=== PATIENT | female | born 1955 | race Hispanic/Latino ===

== ENCOUNTER 2017-12-28 21:04 | Inpatient (IN) | payer BC ==
[~2017-12-28] VITALS: Ht 152.4 cm; Wt 74.8 kg
[~2017-12-28 21:04] MED LIST: DOXY100C2 PO; LEVO75TA4 PO; LOSA25TA21 PO; PRAV20TA4 PO; WARF3TAB59 PO
[2017-12-28] MEDS ORDERED: ACETAMINOPHEN EXTRA STRENGTH 500 MG TABLET ONE (21:31)
[2017-12-28] MEDS ORDERED: ONDANSETRON ODT 4 MG TAB ONE (21:31)
[2017-12-28 22:05] LABS: APPEARANCE,URINE Cloudy (CLEAR); BILIRUBIN,URINE Negative (NEGATIVE); COLOR,URINE Dark Yellow (YELLOW); GLUCOSE, URINE (UA) Negative (NEGATIVE); KETONES,URINE Negative (NEGATIVE); LEUKOCYTE ESTERASE ,URINE Moderate (NEGATIVE); NITRATE,URINE Negative (NEGATIVE); OCCULT BLOOD,URINE Large (NEGATIVE); PH,URINE 5.5 (5.0-8.0); PROTEIN,URINE 300 (NEGATIVE)
[2017-12-28 22:12] LABS: COARSE GRANULAR CASTS,URINE 0-2 /LPF (None Seen)
[2017-12-28 22:13] LABS: BACTERIA,URINE Few /HPF (None Seen); RBC,URINE None Seen /HPF (0-1)
[2017-12-28 22:15] LABS: BASOPHILS % (AUTO) 0.3 % (0.0-5.0); HEMATOCRIT 37.1 % (36-48); LYMPHOCYTES % (AUTO) 6.7 % (21.0-51.0); MEAN CORPUSCULAR HEMOGLOBIN 29.5 pg (27.0-33.0); MEAN CORPUSCULAR HGB CONC 34.5 g/dL (32.0-36.0); MEAN CORPUSCULAR VOLUME 85.6 fL (79-99); MONOCYTES % (AUTO) 4.4 % (3.0-13.0); NEUTROPHILS % (AUTO) 88.6 % (40.0-77.0); PLATELET COUNT (AUTO) 57 K/uL (130-400); RED BLOOD CELL COUNT(AUTO) 4.34 MIL/uL (4.00-5.50); RED CELL DISTRIBUTION WIDTH 13.5 % (11.0-15.5); WHITE BLOOD COUNT (AUTO) 9.6 K/uL (4.8-10.8)
[2017-12-28 22:24] LABS: CREATININE 1.9 mg/dL (0.5-1.5); POTASSIUM 3.7 mmol/L (3.5-5.1)
[2017-12-28 22:28] LABS: ALBUMIN 3.4 g/dL (3.5-5.0); BILIRUBIN,TOTAL 1.5 mg/dL (0.2-1.0); TOTAL PROTEIN, SERUM 7.1 g/dL (6.0-8.3)
[2017-12-28 22:35] LABS: PLATELET MORPHOLOGY COMMENT LARGE PLTS PRESENT
[2017-12-28] MEDS ORDERED: LEVOFLOXACIN 500 MG TABLET ONE (22:49)
[2017-12-28] MEDS ORDERED: SODIUM CHLORIDE 0.9% 500ML 500 ML IV ONE (23:03)
[2017-12-28] MEDS: SODIUM CHLORIDE 0.9% 1000ML 1,000 ML IV SCH (23:51)
[2017-12-29] MEDS ORDERED: ACETAMINOPHEN 325 MG TAB PO PRN ×2
[2017-12-29] MEDS ORDERED: ONDANSETRON HCL MDV 20ML 2 MG/ML VIAL IV PRN
[2017-12-29] MEDS ORDERED: GLUCAGON 1MG KIT 1 MG ML IM PRN
[2017-12-29] MEDS: CEFTRIAXONE SODIUM 1 GM IVP SCH
[2017-12-29] MEDS ORDERED: CEFTRIAXONE 1GM/D5W 50ML 50 ML IV SCH
[2017-12-29] MEDS ORDERED: DEXTROSE 50%-WATER 50 ML DISP.SYRIN IV PRN
[2017-12-29] MEDS ORDERED: SODIUM CHLORIDE 0.9% 1000ML 1,000 ML IV ONE (00:01)
[2017-12-29] MEDS ORDERED: CEFTRIAXONE SODIUM 1 GM ONE ×2 (00:03→11:36)
[2017-12-29 00:09] LABS: INR 1.41 (0.85-1.15); PARTIAL THROMBOPLASTIN TIME 37.3 SEC (26.3-35.5); PROTHROMBIN TIME 14.7 SEC (9.6-11.6)
[2017-12-29 06:14] LABS: CREATININE 1.9 mg/dL (0.5-1.5); MEAN CORPUSCULAR HEMOGLOBIN 30.1 pg (27.0-33.0); MEAN CORPUSCULAR HGB CONC 35.2 g/dL (32.0-36.0); MEAN CORPUSCULAR VOLUME 85.5 fL (79-99); PLATELET COUNT (AUTO) 58 K/uL (130-400); POTASSIUM 3.9 mmol/L (3.5-5.1); RED BLOOD CELL COUNT(AUTO) 4.21 MIL/uL (4.00-5.50); RED CELL DISTRIBUTION WIDTH 13.5 % (11.0-15.5); WHITE BLOOD COUNT (AUTO) 8.1 K/uL (4.8-10.8)
[2017-12-29] MEDS: INSULIN HUMULIN R 100 UNIT/ML 3ML SQ SCH ×4 (07:30→21:00)
[2017-12-29] MEDS ORDERED: FAMOTIDINE 20MG TAB 20 MG TAB ONE (08:12)
[2017-12-29] MEDS ORDERED: NEOMY SULF/BACITRA/POLYMYXIN B 1 EACH PACKET TP ONE (08:12)
[2017-12-29] MEDS: NEOMY SULF/BACITRA/POLYMYXIN B 1 EACH PACKET TP SCH ×3 (09:00→22:37)
[2017-12-29] MEDS: FAMOTIDINE 20MG TAB 20 MG TAB PO SCH ×2 (09:00→19:36)
[2017-12-29] MEDS: SODIUM CHLORIDE 0.9% 1000ML 1,000 ML IV SCH ×2 (09:51→19:51)
[2017-12-29] MEDS ORDERED: POTASSIUM CHLORIDE 10% ELIXIR 20 MEQ/15 ML UDCUP PO PRN ×2 (10:30)
[2017-12-29] MEDS ORDERED: LIDOCAINE HCL-MPF 1% 2ML VIAL IVP PRN ×2 (10:30)
[2017-12-29] MEDS ORDERED: POTASSIUM CHLORIDE 20MEQ/100ML 100 ML IV PRN ×2 (10:30)
[2017-12-29] MEDS ORDERED: POTASSIUM CHLORIDE 20 MEQ ERTAB PO PRN ×2 (10:30)
[2017-12-29 15:44] VITALS: BP 121/58
[2017-12-29] MEDS ORDERED: WARFARIN SODIUM 2 MG TAB PO SCH (16:00)
[2017-12-29 20:08] VITALS: BP 137/78
[2017-12-29 23:23] VITALS: BP 116/60
[2017-12-30] MEDS: CEFTRIAXONE SODIUM 1 GM IVP SCH (01:06)
[2017-12-30 04:01] VITALS: BP 121/59
[2017-12-30 04:50] LABS: HEMATOCRIT 33.4 % (36-48); MEAN CORPUSCULAR HEMOGLOBIN 29.5 pg (27.0-33.0); MEAN CORPUSCULAR HGB CONC 34.5 g/dL (32.0-36.0); MEAN CORPUSCULAR VOLUME 85.7 fL (79-99); PLATELET COUNT (AUTO) 47 K/uL (130-400); RED CELL DISTRIBUTION WIDTH 13.5 % (11.0-15.5); WHITE BLOOD COUNT (AUTO) 6.7 K/uL (4.8-10.8)
[2017-12-30 04:55] LABS: CREATININE 1.8 mg/dL (0.5-1.5); POTASSIUM 3.9 mmol/L (3.5-5.1)
[2017-12-30 04:56] LABS: INR 1.45 (0.85-1.15); PARTIAL THROMBOPLASTIN TIME 34.6 SEC (26.3-35.5); PROTHROMBIN TIME 15.1 SEC (9.6-11.6)
[2017-12-30] MEDS: SODIUM CHLORIDE 0.9% 1000ML 1,000 ML IV SCH (05:47)
[2017-12-30] MEDS: INSULIN HUMULIN R 100 UNIT/ML 3ML SQ SCH ×4 (05:47→21:00)
[2017-12-30] MEDS: LEVOTHYROXINE 75 MCG TABLET PO SCH (06:47)
[2017-12-30 07:00] VITALS: BP 129/57
[2017-12-30] MEDS ORDERED: VANCOMYCIN PROTOCOL PER PHARMACY IV PRN (07:15)
[2017-12-30] MEDS ORDERED: VANCOMYCIN 1GM+NS 250ML 250 ML IV SCH (07:15)
[2017-12-30] MEDS ORDERED: SODIUM CHLORIDE 0.9% 1000ML 1,000 ML IV SCH (07:23)
[2017-12-30] MEDS ORDERED: COMPOUND IV REFRIGERATED 1 EACH IVSOLN MISC PRN (07:30)
[2017-12-30] MEDS ORDERED: VANCOMYCIN PROTOCOL PER PHARMACY IV SCH (07:30)
[2017-12-30] MEDS ORDERED: DOXYCYCLINE 100MG+NS 250ML 250 ML IV SCH (07:30)
[2017-12-30] MEDS ORDERED: ACETAMINOPHEN-CODEINE 300/30MG TAB PO PRN ×2 (07:45)
[2017-12-30] MEDS ORDERED: VANCOMYCIN 1.25 GM in SODIUM CHLORIDE 0.9% 250 ML IV SCH ×2 (08:00→18:00)
[2017-12-30] MEDS: FAMOTIDINE 20MG TAB 20 MG TAB PO SCH ×2 (09:23→21:33)
[2017-12-30 11:00] VITALS: BP 102/76
[2017-12-30] MEDS: NEOMY SULF/BACITRAC ZN/POLY OINT 30GM TUBE TP SCH ×3 (11:13→21:34)
[2017-12-30] MEDS: WARFARIN SODIUM 2 MG TAB PO SCH (13:32)
[2017-12-30 16:00] VITALS: BP 116/60
[2017-12-30 20:05] VITALS: BP 121/47
[2017-12-30] MEDS: ATORVASTATIN CALCIUM 10 MG TABLET PO SCH (21:33)
[2017-12-30] MEDS: DOXYCYCLINE 100MG+NS 250ML 250 ML IV SCH (23:17)
[2017-12-30 23:56] VITALS: BP 119/59
[2017-12-31] MEDS: CEFTRIAXONE SODIUM 1 GM IVP SCH (00:36)
[2017-12-31 05:32] VITALS: BP 109/49
[2017-12-31 05:33] LABS: HEMATOCRIT 30.3 % (36-48); MEAN CORPUSCULAR HEMOGLOBIN 30.4 pg (27.0-33.0); MEAN CORPUSCULAR HGB CONC 35.3 g/dL (32.0-36.0); NUCLEATED RED BLOOD CELLS 0.1 % (0.0-0.19); PLATELET COUNT (AUTO) 46 K/uL (130-400); RED BLOOD CELL COUNT(AUTO) 3.52 MIL/uL (4.00-5.50); RED CELL DISTRIBUTION WIDTH 13.7 % (11.0-15.5); WHITE BLOOD COUNT (AUTO) 6.1 K/uL (4.8-10.8)
[2017-12-31 05:43] LABS: INR 1.37 (0.85-1.15); PARTIAL THROMBOPLASTIN TIME 36.4 SEC (26.3-35.5); PROTHROMBIN TIME 14.3 SEC (9.6-11.6)
[2017-12-31 05:45] LABS: CREATININE 1.4 mg/dL (0.5-1.5); POTASSIUM 3.8 mmol/L (3.5-5.1)
[2017-12-31] MEDS: INSULIN HUMULIN R 100 UNIT/ML 3ML SQ SCH ×4 (06:04→21:34)
[2017-12-31] MEDS: LEVOTHYROXINE 75 MCG TABLET PO SCH (06:07)
[2017-12-31 08:00] VITALS: BP 118/66
[2017-12-31] MEDS: DOXYCYCLINE 100MG+NS 250ML 250 ML IV SCH (09:51)
[2017-12-31] MEDS: FAMOTIDINE 20MG TAB 20 MG TAB PO SCH ×2 (09:51→21:38)
[2017-12-31] MEDS: NEOMY SULF/BACITRAC ZN/POLY OINT 30GM TUBE TP SCH ×3 (09:52→21:00)
[2017-12-31 11:44] VITALS: BP 104/56
[2017-12-31 12:23] LABS: BILIRUBIN,DIRECT 0.7 mg/dL (0.0-0.3); BILIRUBIN,TOTAL 1.1 mg/dL (0.2-1.0)
[2017-12-31 12:24] LABS: RETICULOCYTE % (AUTO) 1.46 % (0.42-2.23)
[2017-12-31] MEDS: DEXAMETHASONE 4 MG TAB PO SCH (12:55)
[2017-12-31 16:01] VITALS: BP 117/71
[2017-12-31] MEDS ORDERED: CEFAZOLIN 2GM / 50 ML 50 ML IV SCH (16:15)
[2017-12-31 20:00] VITALS: BP 109/44
[2017-12-31] MEDS: CEFAZOLIN SODIUM 1 GM VIAL IVP SCH (21:36)
[2017-12-31] MEDS: ATORVASTATIN CALCIUM 10 MG TABLET PO SCH (21:38)
[2017-12-31] MEDS: DOXYCYCLINE HYCLATE 100 MG TABLET PO SCH (21:38)
[2017-12-31 23:43] VITALS: BP 138/65
[2018-01-01 04:00] VITALS: BP 127/73
[2018-01-01 04:43] LABS: HEMATOCRIT 33.1 % (36-48); MEAN CORPUSCULAR HEMOGLOBIN 29.4 pg (27.0-33.0); MEAN CORPUSCULAR HGB CONC 34.3 g/dL (32.0-36.0); MEAN CORPUSCULAR VOLUME 85.7 fL (79-99); PLATELET COUNT (AUTO) 52 K/uL (130-400); RED BLOOD CELL COUNT(AUTO) 3.86 MIL/uL (4.00-5.50); RED CELL DISTRIBUTION WIDTH 13.5 % (11.0-15.5); WHITE BLOOD COUNT (AUTO) 4.5 K/uL (4.8-10.8)
[2018-01-01 04:58] LABS: BAND NEUTROPHILS % (MANUAL) 2 % (0-2); LYMPHOCYTES % (MANUAL) 11 % (22-44); MAN.DIFF COMMENT-IMPRESSION MANUAL DIFFERENTIAL; MONOCYTES % (MANUAL) 1 % (2-9); SEGMENTED NEUTROPHILS % 86 % (40-70)
[2018-01-01 04:59] LABS: PLATELET MORPHOLOGY COMMENT DECREASED
[2018-01-01 05:11] LABS: ALBUMIN 2.6 g/dL (3.5-5.0); BILIRUBIN,TOTAL 0.7 mg/dL (0.2-1.0); CREATININE 1.3 mg/dL (0.5-1.5); POTASSIUM 4.6 mmol/L (3.5-5.1); TOTAL PROTEIN, SERUM 6.6 g/dL (6.0-8.3)
[2018-01-01] MEDS: CEFAZOLIN SODIUM 1 GM VIAL IVP SCH ×3 (05:29→21:01)
[2018-01-01] MEDS: LEVOTHYROXINE 75 MCG TABLET PO SCH (06:05)
[2018-01-01] MEDS: INSULIN HUMULIN R 100 UNIT/ML 3ML SQ SCH ×4 (07:02→21:29)
[2018-01-01 08:19] VITALS: BP 150/78
[2018-01-01] MEDS: NEOMY SULF/BACITRAC ZN/POLY OINT 30GM TUBE TP SCH ×3 (08:36→21:12)
[2018-01-01] MEDS: DOXYCYCLINE HYCLATE 100 MG TABLET PO SCH ×2 (08:36→21:02)
[2018-01-01] MEDS: FAMOTIDINE 20MG TAB 20 MG TAB PO SCH ×2 (08:36→21:02)
[2018-01-01] MEDS: DEXAMETHASONE 4 MG TAB PO SCH (12:16)
[2018-01-01 12:21] VITALS: BP 139/61
[2018-01-01 16:45] VITALS: BP 138/76
[2018-01-01 19:18] VITALS: BP 125/69
[2018-01-01] MEDS: ATORVASTATIN CALCIUM 10 MG TABLET PO SCH (21:02)
[2018-01-01 23:15] VITALS: BP 142/61
[2018-01-02 03:15] VITALS: BP 147/74
[2018-01-02] MEDS: CEFAZOLIN SODIUM 1 GM VIAL IVP SCH ×3 (03:51→21:17)
[2018-01-02 05:34] LABS: HEMATOCRIT 33.3 % (36-48); MEAN CORPUSCULAR HEMOGLOBIN 29.3 pg (27.0-33.0); MEAN CORPUSCULAR HGB CONC 34.3 g/dL (32.0-36.0); MEAN CORPUSCULAR VOLUME 85.5 fL (79-99); PLATELET COUNT (AUTO) 78 K/uL (130-400); RED CELL DISTRIBUTION WIDTH 13.8 % (11.0-15.5); WHITE BLOOD COUNT (AUTO) 7.7 K/uL (4.8-10.8)
[2018-01-02 05:45] LABS: CREATININE 1.6 mg/dL (0.5-1.5); INR 1.51 (0.85-1.15); PARTIAL THROMBOPLASTIN TIME 31.1 SEC (26.3-35.5); POTASSIUM 4.3 mmol/L (3.5-5.1); PROTHROMBIN TIME 15.7 SEC (9.6-11.6)
[2018-01-02] MEDS: INSULIN HUMULIN R 100 UNIT/ML 3ML SQ SCH ×4 (06:44→21:24)
[2018-01-02] MEDS: LEVOTHYROXINE 75 MCG TABLET PO SCH (06:46)
[2018-01-02 08:00] VITALS: BP 144/75
[2018-01-02] MEDS: DOXYCYCLINE HYCLATE 100 MG TABLET PO SCH ×2 (08:25→21:17)
[2018-01-02] MEDS: FAMOTIDINE 20MG TAB 20 MG TAB PO SCH ×2 (08:25→21:17)
[2018-01-02] MEDS: NEOMY SULF/BACITRAC ZN/POLY OINT 30GM TUBE TP SCH ×3 (08:26→21:23)
[2018-01-02] MEDS: DEXAMETHASONE 4 MG TAB PO SCH (11:45)
[2018-01-02 12:00] VITALS: BP 131/66
[2018-01-02 16:00] VITALS: BP 143/73
[2018-01-02] MEDS: WARFARIN SODIUM 2 MG TAB PO SCH (16:50)
[2018-01-02 20:35] VITALS: BP 147/73
[2018-01-02] MEDS: ATORVASTATIN CALCIUM 10 MG TABLET PO SCH (21:17)
[2018-01-02 23:37] VITALS: BP 139/68
[2018-01-03] MEDS: CEFAZOLIN SODIUM 1 GM VIAL IVP SCH ×3 (04:08→19:46)
[2018-01-03 04:15] VITALS: BP 145/65
[2018-01-03] MEDS: LEVOTHYROXINE 75 MCG TABLET PO SCH (05:26)
[2018-01-03] MEDS: INSULIN HUMULIN R 100 UNIT/ML 3ML SQ SCH ×4 (05:27→21:14)
[2018-01-03 06:18] LABS: HEMATOCRIT 33.9 % (36-48); MEAN CORPUSCULAR HEMOGLOBIN 29.2 pg (27.0-33.0); MEAN CORPUSCULAR HGB CONC 33.9 g/dL (32.0-36.0); MEAN CORPUSCULAR VOLUME 86.1 fL (79-99); PLATELET COUNT (AUTO) 121 K/uL (130-400); RED BLOOD CELL COUNT(AUTO) 3.94 MIL/uL (4.00-5.50); RED CELL DISTRIBUTION WIDTH 13.4 % (11.0-15.5); WHITE BLOOD COUNT (AUTO) 7.7 K/uL (4.8-10.8)
[2018-01-03 06:39] LABS: CREATININE 1.6 mg/dL (0.5-1.5); POTASSIUM 4.6 mmol/L (3.5-5.1)
[2018-01-03 08:00] VITALS: BP 145/68
[2018-01-03] MEDS: NEOMY SULF/BACITRAC ZN/POLY OINT 30GM TUBE TP SCH ×3 (09:23→19:52)
[2018-01-03] MEDS: DOXYCYCLINE HYCLATE 100 MG TABLET PO SCH ×2 (09:24→19:47)
[2018-01-03] MEDS: FAMOTIDINE 20MG TAB 20 MG TAB PO SCH ×2 (09:24→19:47)
[2018-01-03 11:00] VITALS: BP 123/73
[2018-01-03] MEDS: DEXAMETHASONE 4 MG TAB PO SCH (11:50)
[2018-01-03 15:45] VITALS: BP 144/79
[2018-01-03] MEDS: WARFARIN SODIUM 2 MG TAB PO SCH (16:00)
[2018-01-03] MEDS: ATORVASTATIN CALCIUM 10 MG TABLET PO SCH (19:47)
[2018-01-03 20:26] VITALS: BP 154/83
[2018-01-04 00:28] VITALS: BP 152/63
[2018-01-04 03:52] VITALS: BP 143/72
[2018-01-04] MEDS: CEFAZOLIN SODIUM 1 GM VIAL IVP SCH ×3 (04:08→19:51)
[2018-01-04] MEDS: LEVOTHYROXINE 75 MCG TABLET PO SCH (05:39)
[2018-01-04] MEDS: INSULIN HUMULIN R 100 UNIT/ML 3ML SQ SCH ×4 (06:06→21:07)
[2018-01-04 06:49] LABS: HEMATOCRIT 34.9 % (36-48); MEAN CORPUSCULAR VOLUME 85.4 fL (79-99); PLATELET COUNT (AUTO) 131 K/uL (130-400); RED BLOOD CELL COUNT(AUTO) 4.09 MIL/uL (4.00-5.50); RED CELL DISTRIBUTION WIDTH 13.6 % (11.0-15.5); WHITE BLOOD COUNT (AUTO) 7.5 K/uL (4.8-10.8)
[2018-01-04 07:00] VITALS: BP 149/93
[2018-01-04 07:00] LABS: CREATININE 1.6 mg/dL (0.5-1.5); POTASSIUM 4.6 mmol/L (3.5-5.1)
[2018-01-04 07:09] LABS: INR 1.55 (0.85-1.15); PROTHROMBIN TIME 16.1 SEC (9.6-11.6)
[2018-01-04] MEDS: WARFARIN SODIUM 2 MG TAB PO SCH (08:13)
[2018-01-04] MEDS: NEOMY SULF/BACITRAC ZN/POLY OINT 30GM TUBE TP SCH ×3 (08:53→19:57)
[2018-01-04] MEDS: DOXYCYCLINE HYCLATE 100 MG TABLET PO SCH ×2 (09:00→19:52)
[2018-01-04] MEDS: FAMOTIDINE 20MG TAB 20 MG TAB PO SCH ×2 (09:00→19:52)
[2018-01-04 11:11] VITALS: BP 155/76
[2018-01-04 15:36] VITALS: BP 131/63
[2018-01-04 19:48] VITALS: BP 120/68
[2018-01-04] MEDS: ATORVASTATIN CALCIUM 10 MG TABLET PO SCH (19:52)
[2018-01-05] VITALS (7 sets, daily range): BP systolic 124–141; BP diastolic 52–74
[2018-01-05] MEDS: CEFAZOLIN SODIUM 1 GM VIAL IVP SCH ×3 (04:18→20:21)
[2018-01-05] MEDS: LEVOTHYROXINE 75 MCG TABLET PO SCH (04:21)
[2018-01-05 05:07] LABS: HEMATOCRIT 33.6 % (36-48); MEAN CORPUSCULAR HEMOGLOBIN 29.2 pg (27.0-33.0); MEAN CORPUSCULAR HGB CONC 34.2 g/dL (32.0-36.0); MEAN CORPUSCULAR VOLUME 85.4 fL (79-99); NUCLEATED RED BLOOD CELLS 0.1 % (0.0-0.19); PLATELET COUNT (AUTO) 126 K/uL (130-400); RED BLOOD CELL COUNT(AUTO) 3.93 MIL/uL (4.00-5.50); RED CELL DISTRIBUTION WIDTH 13.4 % (11.0-15.5); WHITE BLOOD COUNT (AUTO) 7.4 K/uL (4.8-10.8)
[2018-01-05] MEDS: INSULIN HUMULIN R 100 UNIT/ML 3ML SQ SCH ×4 (06:19→21:14)
[2018-01-05] MEDS: NEOMY SULF/BACITRAC ZN/POLY OINT 30GM TUBE TP SCH ×3 (09:00→21:14)
[2018-01-05] MEDS ORDERED: LIDOCAINE HCL-MPF 2% 10ML AMP IJ SCH (09:45)
[2018-01-05] MEDS ORDERED: MIDAZOLAM HCL 1 MG/ML 5ML VIAL IVP SCH (09:45)
[2018-01-05] MEDS: FENTANYL CITRATE PF 50 MCG/1 ML 2ML VIAL IVP SCH ×2 (09:45→11:10)
[2018-01-05] MEDS ORDERED: LIDOCAINE HCL-MPF 2% 5ML VIAL IV SCH (10:30)
[2018-01-05] MEDS ORDERED: LIDOCAINE HCL 2% VISCOUS 15 ML UDCUP PO SCH (10:45)
[2018-01-05] MEDS: MIDAZOLAM HCL 1 MG/ML 2ML VIAL IVP SCH ×2 (10:45→11:12)
[2018-01-05] MEDS: DOXYCYCLINE HYCLATE 100 MG TABLET PO SCH ×2 (12:47→20:21)
[2018-01-05] MEDS: FAMOTIDINE 20MG TAB 20 MG TAB PO SCH ×2 (12:47→20:21)
[2018-01-05] MEDS: WARFARIN SODIUM 2 MG TAB PO SCH (15:04)
[2018-01-05] MEDS: ATORVASTATIN CALCIUM 10 MG TABLET PO SCH (20:21)
[2018-01-06 01:59] LABS: CREATINE KINASE MB 0.9 ng/mL (0.5-3.6); CREATINE KINASE, TOTAL 12 U/L (21-232); MYOGLOBIN 39 ng/mL (10-92); TROPONIN I < 0.04 ng/mL (0.00-0.06)
[2018-01-06 03:43] VITALS: BP 144/67
[2018-01-06] MEDS: CEFAZOLIN SODIUM 1 GM VIAL IVP SCH ×2 (03:56→15:02)
[2018-01-06 05:16] LABS: HEMATOCRIT 35.1 % (36-48); MEAN CORPUSCULAR HEMOGLOBIN 29.6 pg (27.0-33.0); MEAN CORPUSCULAR HGB CONC 34.5 g/dL (32.0-36.0); MEAN CORPUSCULAR VOLUME 85.9 fL (79-99); NUCLEATED RED BLOOD CELLS 0.1 % (0.0-0.19); PLATELET COUNT (AUTO) 135 K/uL (130-400); RED BLOOD CELL COUNT(AUTO) 4.09 MIL/uL (4.00-5.50); RED CELL DISTRIBUTION WIDTH 13.9 % (11.0-15.5); WHITE BLOOD COUNT (AUTO) 9.3 K/uL (4.8-10.8)
[2018-01-06 05:23] LABS: INR 1.34 (0.85-1.15)
[2018-01-06] MEDS: INSULIN HUMULIN R 100 UNIT/ML 3ML SQ SCH ×3 (05:38→16:30)
[2018-01-06] MEDS: LEVOTHYROXINE 75 MCG TABLET PO SCH (06:12)
[2018-01-06 07:00] VITALS: BP 142/69
[2018-01-06] MEDS: FAMOTIDINE 20MG TAB 20 MG TAB PO SCH (08:50)
[2018-01-06] MEDS: DOXYCYCLINE HYCLATE 100 MG TABLET PO SCH (08:50)
[2018-01-06] MEDS: NEOMY SULF/BACITRAC ZN/POLY OINT 30GM TUBE TP SCH ×2 (08:50→15:11)
== END 2018-01-06 19:42 | disposition home or self-care (01) | DRG 871 ==
LOC: EDH 21:04 → OBSVTOIN 23:05 → EDHIP 23:05 → 3AH 12-29 14:22
PROVIDERS: ADMIT Internal Medicine; ATTEND Internal Medicine
PROC: B24BZZZ Ultrasonography of Heart with Aorta (ICD-10-PCS; principal; 2017-12-28)
PROC: 02HV33Z Insertion of Infusion Device into Superior Vena Cava, Percutaneous Approach (ICD-10-PCS; 2018-01-06)
DX: A41.01 Sepsis due to Methicillin susceptible Staphylococcus aureus (principal); I33.0 Acute and subacute infective endocarditis; E44.1 Mild protein-calorie malnutrition; N39.0 Urinary tract infection, site not specified; N17.9 Acute kidney failure, unspecified; E87.1 Hypo-osmolality and hyponatremia; D69.3 Immune thrombocytopenic purpura; D68.69 Other thrombophilia; E11.9 Type 2 diabetes mellitus without complications; I10 Essential (primary) hypertension; Z95.3 Presence of xenogenic heart valve; E78.5 Hyperlipidemia, unspecified; Z79.01 Long term (current) use of anticoagulants; Z68.32 Body mass index [BMI] 32.0-32.9, adult; E03.9 Hypothyroidism, unspecified; E86.0 Dehydration; R53.81 Other malaise; I08.0 Rheumatic disorders of both mitral and aortic valves; I48.2 Chronic atrial fibrillation; Z95.0 Presence of cardiac pacemaker; Z83.3 Family history of diabetes mellitus; D64.9 Anemia, unspecified
CPT/HCPCS: 36415; 71045; 74176; 80048; 80053; 81001; 82247; 82248; 82550; 82553; 82607; 82746; 82948; 83010; 83690; 83874; 84484; 85025; 85027; 85045; 85060; 85610; 85730; 86757; 86880; 87040; 87088; 87186; 87520; 93005; 93306; 93312; A4218; J0690; J0696; J1815; J2250; J3010; J3370; J3490; J7030; J7040; J8540

== ENCOUNTER → 2018-05-26 | Outpatient (CLI) | payer BC ==
[~2018-05-26] MED LIST changes: +LOSA25TA16 PO; -LOSA25TA21 PO
== END | disposition home or self-care (01) ==
LOC: SHCH 10:05
PROVIDERS: ATTEND Internal Medicine Cardiovascular Disease
DX: I07.1 Rheumatic tricuspid insufficiency (principal); I38 Endocarditis, valve unspecified; Z95.0 Presence of cardiac pacemaker; Z95.2 Presence of prosthetic heart valve
CPT/HCPCS: 93306

== ENCOUNTER 2018-12-15 06:53 | Inpatient (IN) | payer BC ==
[~2018-12-15] VITALS: Ht 149.9 cm; Wt 72.6 kg
[~2018-12-15 06:53] MED LIST changes: -LOSA25TA16 PO; +LOSA25TA41 PO
[2018-12-15] MEDS ORDERED: IPRATROPIUM/ALBUTEROL SULFATE 3 ML SOLUTION IH ONE ×3 (07:19→12:07)
[2018-12-15 07:32] LABS: BASOPHILS % (AUTO) 0.8 % (0.0-5.0); EOSINOPHILS % (AUTO) 0.2 % (0.0-8.0); HEMATOCRIT 35.3 % (36-48); LYMPHOCYTES % (AUTO) 9.4 % (21.0-51.0); MEAN CORPUSCULAR HEMOGLOBIN 28.6 pg (27.0-33.0); MEAN CORPUSCULAR HGB CONC 32.7 g/dL (32.0-36.0); MEAN CORPUSCULAR VOLUME 87.5 fL (79-99); MONOCYTES % (AUTO) 5.8 % (3.0-13.0); NEUTROPHILS % (AUTO) 83.8 % (40.0-77.0); PLATELET COUNT (AUTO) 123 K/uL (130-400); RED BLOOD CELL COUNT(AUTO) 4.04 MIL/uL (4.00-5.50); RED CELL DISTRIBUTION WIDTH 14.5 % (11.0-15.5); WHITE BLOOD COUNT (AUTO) 11.7 K/uL (4.8-10.8)
[2018-12-15 07:41] LABS: CREATININE 1.8 mg/dL (0.5-1.5); POTASSIUM 4.1 mmol/L (3.5-5.1)
[2018-12-15 07:47] LABS: ALBUMIN 3.7 g/dL (3.5-5.0); BILIRUBIN,TOTAL 1.3 mg/dL (0.2-1.0); TOTAL PROTEIN, SERUM 7.4 g/dL (6.0-8.3)
[2018-12-15] MEDS ORDERED: METHYLPREDNISOLONE SOD SUCC 125MG/2ML VIAL ONE (07:51)
[2018-12-15 07:53] LABS: INR 1.51 (0.85-1.15); PARTIAL THROMBOPLASTIN TIME 43.3 SEC (26.3-35.5); PROTHROMBIN TIME 15.7 SEC (9.6-11.6)
[2018-12-15] MEDS ORDERED: ALBUTEROL SULFATE 0.083% 2.5 MG/3 ML INH IH ONE (09:59)
[2018-12-15 10:33] LABS: ABG BASE EXCESS -4.6 mmol/L (-2.0-3.0); ABG HCO3 17.6 mmol/L (21.0-28.0); ABG PCO2 26 mmHg (32-45)
[2018-12-15] MEDS ORDERED: ONDANSETRON HCL 4 MG/2 ML VIAL IV PRN (12:00)
[2018-12-15] MEDS ORDERED: ACETAMINOPHEN 325 MG TAB PO PRN (12:00)
[2018-12-15] MEDS: METHYLPREDNISOLONE SOD SUCC 40MG/ML 1ML IVP SCH ×2 (12:00→21:18)
[2018-12-15] MEDS ORDERED: HYDRALAZINE HCL 20 MG/ML VIAL IV PRN (12:00)
[2018-12-15] MEDS: IPRATROPIUM/ALBUTEROL SULFATE 3 ML SOLUTION IH SCH ×3 (12:28→23:11)
[2018-12-15] MEDS ORDERED: METHYLPREDNISOLONE SOD SUCC 40MG/ML 1ML ONE (16:23)
[2018-12-15] MEDS ORDERED: INSULIN HUMULIN R 100 UNIT/ML 3ML SQ SCH (16:30)
[2018-12-15 17:18] VITALS: BP 146/52
--- NOTE | 2018-12-15 17:40 | NUR ---
GALVEZ AWARE FOR PULMONARY CONSULT
[2018-12-15] MEDS ORDERED: HEPARIN SODIUM 5000UNIT/ML 1ML VIAL SQ PRN (18:15)
[2018-12-15 19:00] VITALS: BP 137/59
[2018-12-15] MEDS ORDERED: WARFARIN SODIUM 1 MG TAB PO SCH (19:30)
[2018-12-15] MEDS: FUROSEMIDE 10 MG/ML 2ML VIAL IV SCH (20:06)
--- NOTE | 2018-12-15 20:21 | NUR ---
Heparin Drip spoke to MD Calvo regarding procedure CJ and heparin drip. MD west to start drip. RENETTA Sauer.
[2018-12-15] MEDS ORDERED: FUROSEMIDE 10 MG/ML 4ML VIAL IVP SCH (21:00)
[2018-12-15] MEDS ORDERED: LOSARTAN 50 MG TABLET PO SCH (21:00)
[2018-12-15] MEDS: ATORVASTATIN CALCIUM 10 MG TABLET PO SCH (21:18)
[2018-12-15] MEDS: FAMOTIDINE/PF 20 MG/2 ML VIAL IV SCH (21:18)
[2018-12-15] MEDS: ZOSYN 3.375GM+NS 50ML 50 ML IV SCH (21:19)
[2018-12-15] MEDS: HEPARIN 25000 UNITS/250 ML D5W 250 ML IV SCH (21:44)
[2018-12-15] MEDS ORDERED: DEXTROSE 50%-WATER 50 ML DISP.SYRIN IV PRN (22:15)
[2018-12-15] MEDS ORDERED: GLUCAGON 1MG KIT 1 MG ML IM PRN (22:15)
[2018-12-15 23:00] VITALS: BP 136/64
[2018-12-16] MEDS ORDERED: INSULIN HUMULIN R 100 UNIT/ML 3ML ONE (00:30)
[2018-12-16] MEDS: INSULIN HUMULIN R 100 UNIT/ML 3ML SQ SCH ×4 (00:32→21:12)
[2018-12-16] MEDS: FUROSEMIDE 10 MG/ML 2ML VIAL IV SCH (02:39)
[2018-12-16 03:00] VITALS: BP 154/59
[2018-12-16] MEDS: METHYLPREDNISOLONE SOD SUCC 40MG/ML 1ML IVP SCH ×3 (04:09→20:22)
[2018-12-16 04:55] LABS: CREATININE 2.2 mg/dL (0.5-1.5); POTASSIUM 3.4 mmol/L (3.5-5.1)
[2018-12-16 04:57] LABS: INR 1.37 (0.85-1.15); PARTIAL THROMBOPLASTIN TIME 40.8 SEC (26.3-35.5); PROTHROMBIN TIME 14.3 SEC (9.6-11.6)
[2018-12-16] MEDS: HEPARIN 25000 UNITS/250 ML D5W 250 ML IV SCH (05:26)
[2018-12-16 05:46] LABS: BASOPHILS % (AUTO) 0.1 % (0.0-5.0); EOSINOPHILS % (AUTO) 0.1 % (0.0-8.0); HEMATOCRIT 33.4 % (36-48); LYMPHOCYTES % (AUTO) 6.8 % (21.0-51.0); MEAN CORPUSCULAR HEMOGLOBIN 29.9 pg (27.0-33.0); MEAN CORPUSCULAR HGB CONC 34.2 g/dL (32.0-36.0); MEAN CORPUSCULAR VOLUME 87.6 fL (79-99); MONOCYTES % (AUTO) 3.2 % (3.0-13.0); NEUTROPHILS % (AUTO) 89.8 % (40.0-77.0); PLATELET COUNT (AUTO) 94 K/uL (130-400); RED BLOOD CELL COUNT(AUTO) 3.82 MIL/uL (4.00-5.50); RED CELL DISTRIBUTION WIDTH 14.4 % (11.0-15.5); WHITE BLOOD COUNT (AUTO) 10.1 K/uL (4.8-10.8)
[2018-12-16] MEDS: IPRATROPIUM/ALBUTEROL SULFATE 3 ML SOLUTION IH SCH ×3 (06:45→18:48)
[2018-12-16] MEDS: LEVOTHYROXINE 75 MCG TABLET PO SCH (07:06)
[2018-12-16 07:54] VITALS: BP 114/46
[2018-12-16] MEDS ORDERED: MIDAZOLAM HCL 1 MG/ML 2ML VIAL IVP ONE (08:00)
[2018-12-16] MEDS ORDERED: FENTANYL CITRATE PF 50 MCG/1 ML 2ML VIAL IVP ONE (08:00)
[2018-12-16] MEDS ORDERED: SODIUM CHLORIDE 0.9% 1000ML 1,000 ML IV SCH (08:30)
--- NOTE | 2018-12-16 08:40 | NUR ---
DR. MALDONADO IN ROOM SPEAKING WITH PT. RE:PLAN OF CARE AND QUESTIONS ANSWERED.
[2018-12-16] MEDS ORDERED: LIDOCAINE HCL 2% VISCOUS 15 ML UDCUP PO SCH (08:45)
[2018-12-16] MEDS ORDERED: MIDAZOLAM HCL 1 MG/ML 2ML VIAL ONE (10:15)
[2018-12-16] MEDS ORDERED: FENTANYL CITRATE PF 50 MCG/1 ML 2ML VIAL ONE (10:17)
[2018-12-16] MEDS: INSULIN LISPRO 100 UNIT/ML 3ML SQ SCH ×3 (11:30→17:13)
[2018-12-16] MEDS: SODIUM CHLORIDE 3% FOR INHALATION 4 ML/AMP VIAL.NEB IH SCH ×2 (11:52→19:07)
[2018-12-16 12:05] VITALS: BP 125/55
[2018-12-16] MEDS: ZOSYN 3.375GM+NS 50ML 50 ML IV SCH ×2 (12:14→20:20)
[2018-12-16] MEDS: FAMOTIDINE/PF 20 MG/2 ML VIAL IV SCH ×2 (12:18→20:22)
--- NOTE | 2018-12-16 13:31 | NUR ---
DR. VÁSQUEZ IN ROOM ASSESSING/SPEAKING WITH PT. PT.'S SPOUSE AT BEDSIDE. QUESTIONS ANSWERED BY DR. VÁSQUEZ.
[2018-12-16] MEDS ORDERED: RIVA15TA PO (15:03)
[2018-12-16 15:46] VITALS: BP 127/56
[2018-12-16] MEDS ORDERED: WARFARIN SODIUM 5 MG TAB PO SCH (16:00)
--- NOTE | 2018-12-16 16:03 | NUR ---
DC PLAN PATIENT LIVES WITH SPOUSE. INDEPENDENT ABLE TO PERFORM ADL'S. PATIENT LIVES WITH SPOUSE. INDEPENDENT ABLE TO PERFORM ADL'S. FEELS SAFE TO RETURN HOME. Addendum: 12/16/18 at 1628 by PAULO MORGAN RN CM Amended: Links added.
[2018-12-16] MEDS ORDERED: LACTULOSE 20 GM/30 ML UDCUP PO PRN (17:15)
[2018-12-16 19:30] VITALS: BP 109/54
[2018-12-16] MEDS ORDERED: FUROSEMIDE 10 MG/ML 4ML VIAL IV SCH (20:00)
[2018-12-16] MEDS ORDERED: SODIUM CHLORIDE 0.9% 1000ML 1,000 ML IV ONE (20:15)
[2018-12-16] MEDS: SODIUM CHLORIDE 0.9% 1000ML 1,000 ML IV SCH (20:15)
[2018-12-16] MEDS: ATORVASTATIN CALCIUM 10 MG TABLET PO SCH (20:22)
[2018-12-16] MEDS: INSULIN GLARGINE 100 UNITS/ML 10 ML VIAL SQ SCH (21:11)
[2018-12-16 23:50] VITALS: BP 132/57
[2018-12-17] VITALS (18 sets, daily range): BP systolic 119–154; BP diastolic 48–79
[2018-12-17] MEDS: IPRATROPIUM/ALBUTEROL SULFATE 3 ML SOLUTION IH SCH ×5 (01:20→23:21)
[2018-12-17] MEDS: HEPARIN 25000 UNITS/250 ML D5W 250 ML IV SCH ×2 (01:26→01:29)
[2018-12-17] MEDS ORDERED: SODIUM CHLORIDE 3% FOR INHALATION 4 ML/AMP VIAL.NEB IH ONE (01:38)
--- NOTE | 2018-12-17 03:20 | NUR ---
CALLED IN BY PATIENT. NOSE BLEEDING PROFUSELY , BRIGHT RED BLOOD. ICE BUSHRA AND LIGHT PRESSURE APPLIED TO BRIDGE OF NOSE. 0324-DIE HOLDER PAGED. 0325-DIE HOLDER RETURNED CALL, APPRAISED OF NOSE BLEEDING AND LAST PTT. ORDERS RECEIVED TO STOP HEPARIN DRIP AND DRAW LABS IN AM IF NOT ALREADY ORDERED. 0340-HEMOSTASIS OBTAINED. PATIENT REMAINED ALERT AND ORIENTATED TIMES THREE. WILL CONTINUE TO MONITOR.
[2018-12-17 04:30] LABS: ABG BASE EXCESS -6.8 mmol/L (-2.0-3.0); ABG HCO3 17.3 mmol/L (21.0-28.0); ABG OXYGEN SATURATION 97.5 % (95.0-99.0); ABG PCO2 31 mmHg (32-45)
[2018-12-17] MEDS: METHYLPREDNISOLONE SOD SUCC 40MG/ML 1ML IVP SCH ×3 (04:33→21:02)
[2018-12-17] MEDS: INSULIN HUMULIN R 100 UNIT/ML 3ML SQ SCH ×5 (04:33→21:18)
[2018-12-17 04:41] LABS: MEAN CORPUSCULAR HEMOGLOBIN 28.5 pg (27.0-33.0); MEAN CORPUSCULAR HGB CONC 32.6 g/dL (32.0-36.0); MEAN CORPUSCULAR VOLUME 87.6 fL (79-99); PLATELET COUNT (AUTO) 121 K/uL (130-400); RED BLOOD CELL COUNT(AUTO) 3.77 MIL/uL (4.00-5.50); RED CELL DISTRIBUTION WIDTH 14.4 % (11.0-15.5); WHITE BLOOD COUNT (AUTO) 12.8 K/uL (4.8-10.8)
[2018-12-17 04:53] LABS: INR 1.18 (0.85-1.15); PARTIAL THROMBOPLASTIN TIME 55.5 SEC (26.3-35.5); PROTHROMBIN TIME 12.4 SEC (9.6-11.6)
[2018-12-17 05:15] LABS: ALBUMIN 3.2 g/dL (3.5-5.0); BILIRUBIN,TOTAL 0.8 mg/dL (0.2-1.0); CREATININE 2.4 mg/dL (0.5-1.5); MAGNESIUM 2.5 mg/dL (1.80-2.40); PHOSPHORUS 5.2 mg/dL (2.5-4.9); POTASSIUM 3.3 mmol/L (3.5-5.1); THYROID STIMULATING HORMONE 0.91 uIU/mL (0.36-3.74); TOTAL PROTEIN, SERUM 6.8 g/dL (6.0-8.3)
[2018-12-17] MEDS: INSULIN LISPRO 100 UNIT/ML 3ML SQ SCH ×3 (06:01→17:00)
[2018-12-17] MEDS: LEVOTHYROXINE 75 MCG TABLET PO SCH (07:35)
[2018-12-17] MEDS: ZOSYN 3.375GM+NS 50ML 50 ML IV SCH ×2 (08:27→21:02)
[2018-12-17] MEDS: FAMOTIDINE/PF 20 MG/2 ML VIAL IV SCH ×2 (08:27→21:02)
--- NOTE | 2018-12-17 09:00 | NUR ---
DR. MCKENNA IN ROOM ASSESSING/SPEAKING WITH PT. PT.'S SPOUSE AND SON AT BEDSIDE. QUESTIONS ANSWERED BY DR. MCKENNA.
--- NOTE | 2018-12-17 15:45 | NUR ---
DR. Katelin POZO IN ROOM ASSESSING/SPEAKING WITH PT., SPOUSE AT BEDSIDE. DR. POZO UPDATED ON PREVIOUS HEPARIN THERAPY AND EPISTAXIS; VERBALIZED UNDERSTANDING. DR. POZO SPEAKING WITH PT., PT.'S SPOUSE AND SON AT BEDSIDE RE:PLAN OF CARE. QUESTIONS ANSWERED BY DR. POZO.
--- NOTE | 2018-12-17 16:00 | NUR ---
DR. POZO SPEAKING WITH DR. MCKENNA VIA TELEPHONE RE:PT. STATUS AND PLAN OF CARE.
[2018-12-17] MEDS: SODIUM CHLORIDE 0.9% 1000ML 1,000 ML IV SCH (16:15)
--- NOTE | 2018-12-17 16:20 | NUR ---
TRANSFERRED TO ROOM 210 VIA W/C WITH O2 AT 2L/NC. PT. AAOX3, DENIES ANY C/O AT THIS TIME. PT.'S SPOUSE AND SON AWARE.
[2018-12-17] MEDS ORDERED: FENTANYL CITRATE PF 50 MCG/1 ML 2ML VIAL ONE (16:41)
[2018-12-17] MEDS ORDERED: MIDAZOLAM HCL 1 MG/ML 2ML VIAL ONE (16:41)
--- NOTE | 2018-12-17 17:30 | NUR ---
DR. MCKENNA AT BEDSIDE FOR SWAN CLAY PLACEMENT. CONSENT OBTAINED AND IN CHART. PT PREMEDICATED WITH 1 MG OF VERSED AND FENTANYL 50 MCGS IV ORDERED. TOLERATING WELL. 9 FR RT IJ CORDIS PLACED WITH SWAN CLAY POSITIONED AT 55 CM. HEMODYNAMICS NOTED IN EMR. LASIX 60 MG IV GIVEN ORDERED AND DOBUTAMINE DRIP STARTED AT 2.5 MCGS/KG/MIN. FAMILY AT BEDSIDE AND UPDATED. ALL QUESTIONS ANSWERED. CONTINUE TO MONITOR PT. CXR ORDERED FOR PLACEMENT.
[2018-12-17] MEDS ORDERED: FUROSEMIDE 10 MG/ML 10ML VIAL ONE (17:35)
[2018-12-17] MEDS ORDERED: DOBUTAMINE 250MG/D5 250ML 250 ML IV ONE (17:39)
[2018-12-17 17:57] LABS: ABG OXYGEN SATURATION 65.5 % (95.0-99.0); BASE EXCESS,VENOUS BLOOD GAS -4.8 (-2.0-3.0); HCO3,VENOUS BLOOD GAS 20.5 (21.0-28.0); PCO2,VENOUS BLOOD GAS 39 (32-45)
[2018-12-17] MEDS ORDERED: FUROSEMIDE 10 MG/ML 10ML VIAL IVP SCH (18:00)
--- NOTE | 2018-12-17 20:22 | NUR ---
ASSESSMENT AWAKE RESTING IN BED. DENIES PAIN. FAMILY MEMBERS AT BEDSIDE AND QUESTIONS ANSWERED. ENCOURAGED TO CALL FOR WANTS OR NEEDS. REMAINS ON DOBUTAMINE DRIP AT ORDERED RATE. ASSESSMENT COMPLETED SEE FLOW SHEET. Addendum: 12/17/18 at 2023 by JACKIE SANCHEZ RN RN Amended: Links added.
[2018-12-17] MEDS: ATORVASTATIN CALCIUM 10 MG TABLET PO SCH (21:00)
[2018-12-17] MEDS: INSULIN GLARGINE 100 UNITS/ML 10 ML VIAL SQ SCH (21:17)
[2018-12-18] VITALS (22 sets, daily range): BP systolic 111–148; BP diastolic 37–72
[2018-12-18] MEDS: METHYLPREDNISOLONE SOD SUCC 40MG/ML 1ML IVP SCH ×3 (04:40→20:45)
[2018-12-18 06:30] LABS: INR 1.31 (0.85-1.15); PROTHROMBIN TIME 13.7 SEC (9.6-11.6)
[2018-12-18] MEDS: IPRATROPIUM/ALBUTEROL SULFATE 3 ML SOLUTION IH SCH ×4 (06:42→23:16)
[2018-12-18] MEDS: LEVOTHYROXINE 75 MCG TABLET PO SCH (07:00)
[2018-12-18] MEDS: INSULIN LISPRO 100 UNIT/ML 3ML SQ SCH ×3 (07:06→16:52)
[2018-12-18] MEDS: INSULIN HUMULIN R 100 UNIT/ML 3ML SQ SCH ×4 (07:30→20:52)
[2018-12-18 07:57] LABS: HEMATOCRIT 31.2 % (36-48); MEAN CORPUSCULAR HEMOGLOBIN 29.1 pg (27.0-33.0); MEAN CORPUSCULAR HGB CONC 33.2 g/dL (32.0-36.0); MEAN CORPUSCULAR VOLUME 87.9 fL (79-99); NUCLEATED RED BLOOD CELLS 0.1 % (0.0-0.19); PLATELET COUNT (AUTO) 95 K/uL (130-400); RED BLOOD CELL COUNT(AUTO) 3.55 MIL/uL (4.00-5.50); RED CELL DISTRIBUTION WIDTH 14.5 % (11.0-15.5); WHITE BLOOD COUNT (AUTO) 8.1 K/uL (4.8-10.8)
--- NOTE | 2018-12-18 08:00 | NUR ---
DR. MCKENNA IN TO SEE PT. PLAN OF CARE DISCUSSED. NEW ORDERS RECEIVED AND NOTED.
[2018-12-18 08:12] LABS: ALBUMIN 3.2 g/dL (3.5-5.0); BILIRUBIN,TOTAL 0.8 mg/dL (0.2-1.0); POTASSIUM 3.2 mmol/L (3.5-5.1); TOTAL PROTEIN, SERUM 6.5 g/dL (6.0-8.3)
--- NOTE | 2018-12-18 09:00 | NUR ---
PT BLEEDING FROM LEFT NARE, PRESSURE APPLIED BUT PT CONTINUES TO BLEED. DR. MCKENNA NOTIFIED. RAPID RHINO APPLIED ORDERED.. PT TOLERATED WELL. NO FURTHER BLEEDING NOTED.
[2018-12-18] MEDS: ZOSYN 3.375GM+NS 50ML 50 ML IV SCH ×2 (10:13→20:45)
[2018-12-18] MEDS: FAMOTIDINE/PF 20 MG/2 ML VIAL IV SCH ×2 (10:13→20:45)
[2018-12-18] MEDS: GUAIFENESIN-CODEINE 5 ML SYRUP PO PRN ×2 (10:13→20:57)
[2018-12-18] MEDS ORDERED: LIDOCAINE HCL-MPF 1% 2ML VIAL IVP PRN ×2 (10:45)
[2018-12-18] MEDS ORDERED: POTASSIUM CHLORIDE 10MEQ/100ML 100 ML IV PRN (10:45)
[2018-12-18] MEDS ORDERED: POTASSIUM CHLORIDE 10% ELIXIR 20 MEQ/15 ML UDCUP PO PRN (10:45)
[2018-12-18] MEDS: POTASSIUM CHLORIDE 20 MEQ ERTAB PO PRN ×3 (11:08→17:02)
[2018-12-18] MEDS: DOBUTAMINE 250MG/D5 250ML 250 ML IV PRN (13:19)
[2018-12-18] MEDS: FUROSEMIDE 10 MG/ML 4ML VIAL IV SCH (15:07)
--- NOTE | 2018-12-18 15:28 | NUR ---
DR. POZO IN TO SEE PT. PLAN OF CARE DISCUSSED. NEW ORDERS RECEIVED AND NOTED.
[2018-12-18] MEDS ORDERED: WARFARIN SODIUM 1 MG TAB PO SCH (16:00)
--- NOTE | 2018-12-18 20:00 | NUR ---
ASSESSMENT AWAKE. RESTING IN BED. DENIES PAIN. REMAINS ON DOBUTAMINE DRIP AT ORDERED RATE. ASSESSMENT COMPLETED SEE FLOW SHEET. ENCOURAGED TO CALL FOR WANT OR NEEDS. Addendum: 12/18/18 at 2140 by JACKIE SANCHEZ RN RN Amended: Links added.
[2018-12-18] MEDS ORDERED: SODIUM CHLORIDE 0.9% 10 ML VIAL ONE (20:20)
[2018-12-18] MEDS: ATORVASTATIN CALCIUM 10 MG TABLET PO SCH (20:46)
[2018-12-18] MEDS: INSULIN GLARGINE 100 UNITS/ML 10 ML VIAL SQ SCH (20:53)
[2018-12-18 22:35] LABS: ABG OXYGEN SATURATION 78.5 % (95.0-99.0); BASE EXCESS,VENOUS BLOOD GAS -7.8 (-2.0-3.0); HCO3,VENOUS BLOOD GAS 16.9 (21.0-28.0); PCO2,VENOUS BLOOD GAS 31 (32-45)
[2018-12-18] MEDS: POTASSIUM CHLORIDE 10MEQ/100ML 100 ML IV PRN (22:56)
[2018-12-19] VITALS (22 sets, daily range): BP systolic 118–163; BP diastolic 43–91
[2018-12-19] MEDS ORDERED: SODIUM CHLORIDE 0.9% 10 ML VIAL ONE (03:01)
[2018-12-19] MEDS: FUROSEMIDE 10 MG/ML 4ML VIAL IV SCH ×2 (03:37→15:45)
[2018-12-19] MEDS: METHYLPREDNISOLONE SOD SUCC 40MG/ML 1ML IVP SCH ×3 (03:37→21:11)
[2018-12-19 04:10] LABS: BASOPHILS % (AUTO) 0.1 % (0.0-5.0); HEMATOCRIT 29.3 % (36-48); LYMPHOCYTES % (AUTO) 8.4 % (21.0-51.0); MEAN CORPUSCULAR HEMOGLOBIN 28.7 pg (27.0-33.0); MEAN CORPUSCULAR HGB CONC 32.9 g/dL (32.0-36.0); MEAN CORPUSCULAR VOLUME 87.2 fL (79-99); MONOCYTES % (AUTO) 5.5 % (3.0-13.0); PLATELET COUNT (AUTO) 97 K/uL (130-400); RED BLOOD CELL COUNT(AUTO) 3.36 MIL/uL (4.00-5.50); RED CELL DISTRIBUTION WIDTH 14.3 % (11.0-15.5); WHITE BLOOD COUNT (AUTO) 8.2 K/uL (4.8-10.8)
[2018-12-19 04:15] LABS: INR 1.12 (0.85-1.15); PROTHROMBIN TIME 11.7 SEC (9.6-11.6)
[2018-12-19 04:18] LABS: CREATININE 1.8 mg/dL (0.5-1.5); POTASSIUM 3.6 mmol/L (3.5-5.1)
[2018-12-19] MEDS: POTASSIUM CHLORIDE 10MEQ/100ML 100 ML IV PRN (05:16)
[2018-12-19] MEDS: LEVOTHYROXINE 75 MCG TABLET PO SCH (06:34)
[2018-12-19] MEDS: INSULIN LISPRO 100 UNIT/ML 3ML SQ SCH ×3 (06:39→16:35)
[2018-12-19] MEDS: INSULIN HUMULIN R 100 UNIT/ML 3ML SQ SCH ×4 (06:40→21:28)
[2018-12-19] MEDS: IPRATROPIUM/ALBUTEROL SULFATE 3 ML SOLUTION IH SCH ×4 (06:53→23:05)
[2018-12-19] MEDS: BENZONATATE 100 MG CAPSULE PO PRN ×2 (08:53→16:34)
[2018-12-19] MEDS: FAMOTIDINE/PF 20 MG/2 ML VIAL IV SCH ×2 (08:53→21:11)
[2018-12-19] MEDS: ZOSYN 3.375GM+NS 50ML 50 ML IV SCH ×2 (08:53→21:24)
[2018-12-19] MEDS: DOBUTAMINE 250MG/D5 250ML 250 ML IV PRN (09:12)
--- NOTE | 2018-12-19 09:54 | NUR ---
AT THIS TIME PT HAS HAD NO MORE NOSEBLEEDS. I HAVE REMOVED NASAL CANNULA DUE TO NASAL DRYNESS. DR DONNELLY HAS BEEN NOTIFIED VIA HIS OFFICE. DR MALDONADO HAS ROUNDED. PT DIURESING WELL. STABLE V/S. RESTING QUIETLY. GIVEN TESSALON FOR COUGH. SWAN INTACT.
--- NOTE | 2018-12-19 11:25 | NUR ---
DR DEWITT ROUNDS MADE AT BEDSIDE. SPOKE TO PATIENT. PLAN OF CARE UNCHANGED FOR NOW
--- NOTE | 2018-12-19 11:31 | NUR ---
DR DEWITT AND DR MCKENNA DISCUSS CARE AT THE NURSES STATION.
--- NOTE | 2018-12-19 17:06 | NUR ---
DR HOUSTON AT BEDSIDE-EXAMINES PATIENT WITH SON SONALI AT THE BEDSIDE. LONG DISCUSSION. PLAN TO PEG AND TRACH IN THE NEXT FEW DAYS . WILL RE-EVALUATE DAILY. PEG/TRACH VS PALLIATIVE CARE DISCUSSED. Addendum: 12/19/18 at 1709 by NICOLE BAPTISTE RN RN DISREGARD THIS NOTE-WRONG CHART
[2018-12-19] MEDS: POTASSIUM CHLORIDE 20 MEQ ERTAB PO PRN (17:59)
--- NOTE | 2018-12-19 19:15 | NUR ---
HAND OFF REPORT GIVEN TO KAREN JACKSON
[2018-12-19] MEDS: ATORVASTATIN CALCIUM 10 MG TABLET PO SCH (21:10)
[2018-12-19] MEDS: GUAIFENESIN-CODEINE 5 ML SYRUP PO PRN (21:10)
[2018-12-19] MEDS: INSULIN GLARGINE 100 UNITS/ML 10 ML VIAL SQ SCH (21:19)
[2018-12-19] MEDS: MUPIROCIN OINTMENT 22 GM TUBE TP SCH (21:24)
[2018-12-20] VITALS (20 sets, daily range): BP systolic 122–164; BP diastolic 45–69
[2018-12-20] MEDS: DOBUTAMINE 250MG/D5 250ML 250 ML IV PRN (03:57)
[2018-12-20] MEDS: FUROSEMIDE 10 MG/ML 4ML VIAL IV SCH ×2 (03:57→16:12)
[2018-12-20] MEDS: METHYLPREDNISOLONE SOD SUCC 40MG/ML 1ML IVP SCH ×3 (04:13→20:43)
[2018-12-20 04:16] LABS: CREATININE 1.8 mg/dL (0.5-1.5); POTASSIUM 3.5 mmol/L (3.5-5.1)
[2018-12-20 04:17] LABS: INR 1.12 (0.85-1.15); PROTHROMBIN TIME 11.7 SEC (9.6-11.6)
[2018-12-20] MEDS: INSULIN HUMULIN R 100 UNIT/ML 3ML SQ SCH ×4 (06:03→20:47)
[2018-12-20] MEDS: LEVOTHYROXINE 75 MCG TABLET PO SCH (06:34)
[2018-12-20] MEDS: IPRATROPIUM/ALBUTEROL SULFATE 3 ML SOLUTION IH SCH ×4 (06:48→23:18)
[2018-12-20] MEDS: INSULIN LISPRO 100 UNIT/ML 3ML SQ SCH ×3 (07:20→16:54)
[2018-12-20] MEDS: MUPIROCIN OINTMENT 22 GM TUBE TP SCH ×2 (09:00→21:00)
[2018-12-20] MEDS: ZOSYN 3.375GM+NS 50ML 50 ML IV SCH ×2 (09:05→20:42)
[2018-12-20] MEDS: FAMOTIDINE/PF 20 MG/2 ML VIAL IV SCH ×2 (09:05→20:38)
[2018-12-20] MEDS: POTASSIUM CHLORIDE 20 MEQ ERTAB PO PRN (16:17)
--- NOTE | 2018-12-20 20:00 | NUR ---
Assessment Patient AAOX3, Son at bedside. Continues on Dobutamine as ordered. Central line dressing change. Pt resting comfortably, no distress noted.
[2018-12-20] MEDS: INSULIN GLARGINE 100 UNITS/ML 10 ML VIAL SQ SCH (20:39)
[2018-12-20] MEDS: ATORVASTATIN CALCIUM 10 MG TABLET PO SCH (20:43)
[2018-12-20] MEDS: GUAIFENESIN-CODEINE 5 ML SYRUP PO PRN (20:51)
[2018-12-21] MEDS: FUROSEMIDE 10 MG/ML 4ML VIAL IV SCH ×2 (03:18→14:44)
[2018-12-21 03:28] VITALS: BP 120/50
[2018-12-21] MEDS ORDERED: DOBUTAMINE 250MG/D5 250ML 250 ML IV ONE (03:28)
[2018-12-21 04:14] LABS: HEMATOCRIT 30.6 % (36-48); MEAN CORPUSCULAR HEMOGLOBIN 28.5 pg (27.0-33.0); MEAN CORPUSCULAR HGB CONC 32.8 g/dL (32.0-36.0); MEAN CORPUSCULAR VOLUME 86.8 fL (79-99); PLATELET COUNT (AUTO) 98 K/uL (130-400); RED BLOOD CELL COUNT(AUTO) 3.53 MIL/uL (4.00-5.50); RED CELL DISTRIBUTION WIDTH 14.6 % (11.0-15.5)
[2018-12-21 04:26] LABS: CREATININE 1.8 mg/dL (0.5-1.5); PHOSPHORUS 3.8 mg/dL (2.5-4.9); POTASSIUM 3.5 mmol/L (3.5-5.1)
[2018-12-21] MEDS: IPRATROPIUM/ALBUTEROL SULFATE 3 ML SOLUTION IH SCH ×4 (06:16→23:45)
[2018-12-21] MEDS: INSULIN HUMULIN R 100 UNIT/ML 3ML SQ SCH ×4 (06:18→21:15)
[2018-12-21] MEDS: INSULIN LISPRO 100 UNIT/ML 3ML SQ SCH ×3 (06:19→17:04)
[2018-12-21] MEDS: LEVOTHYROXINE 75 MCG TABLET PO SCH (06:34)
[2018-12-21 07:00] VITALS: BP 132/57
[2018-12-21] MEDS: FAMOTIDINE/PF 20 MG/2 ML VIAL IV SCH ×2 (09:22→20:06)
[2018-12-21] MEDS: METHYLPREDNISOLONE SOD SUCC 40MG/ML 1ML IVP SCH ×2 (09:22→20:07)
[2018-12-21] MEDS: MUPIROCIN OINTMENT 22 GM TUBE TP SCH ×2 (09:22→21:00)
[2018-12-21] MEDS: ZOSYN 3.375GM+NS 50ML 50 ML IV SCH ×2 (09:23→20:06)
[2018-12-21 11:00] VITALS: BP 114/46
--- NOTE | 2018-12-21 15:30 | NUR ---
RDSCREEN - LOS X 6 Patient tolerating Heart Healthy, 75gm CC Diet with no report of GI distress and PO intake at 100%. LBM 12/17/18 as per EMR; Rec stool softener/laxative for constipation. Patient monitored labs: BUN 68, Cr 1.8, GFR 30, Glu 177, Ca 8.1, Alb 3.2. RD to continue to monitor. Please notify RD as nutritional concerns arise. Thank you. Addendum: 12/21/18 at [address] Amended: Links added.
[2018-12-21 16:00] VITALS: BP 131/63
[2018-12-21 19:34] VITALS: BP 125/48
[2018-12-21] MEDS: ATORVASTATIN CALCIUM 10 MG TABLET PO SCH (20:07)
[2018-12-21] MEDS: INSULIN GLARGINE 100 UNITS/ML 10 ML VIAL SQ SCH (21:11)
[2018-12-21 23:40] VITALS: BP 140/57
[2018-12-22] MEDS: FUROSEMIDE 10 MG/ML 4ML VIAL IV SCH (03:13)
[2018-12-22 03:28] VITALS: BP 132/60
[2018-12-22 04:17] LABS: HEMATOCRIT 31.5 % (36-48); LYMPHOCYTES % (AUTO) 9.6 % (21.0-51.0); MEAN CORPUSCULAR HEMOGLOBIN 28.9 pg (27.0-33.0); MEAN CORPUSCULAR HGB CONC 33.1 g/dL (32.0-36.0); MEAN CORPUSCULAR VOLUME 87.3 fL (79-99); MONOCYTES % (AUTO) 4.6 % (3.0-13.0); NEUTROPHILS % (AUTO) 84.8 % (40.0-77.0); NUCLEATED RED BLOOD CELLS 0.1 % (0.0-0.19); PLATELET COUNT (AUTO) 94 K/uL (130-400); RED CELL DISTRIBUTION WIDTH 14.6 % (11.0-15.5); WHITE BLOOD COUNT (AUTO) 10.3 K/uL (4.8-10.8)
[2018-12-22] MEDS: IPRATROPIUM/ALBUTEROL SULFATE 3 ML SOLUTION IH SCH ×4 (05:08→23:48)
[2018-12-22] MEDS: LEVOTHYROXINE 75 MCG TABLET PO SCH (05:40)
[2018-12-22] MEDS: INSULIN HUMULIN R 100 UNIT/ML 3ML SQ SCH ×4 (05:58→20:55)
[2018-12-22] MEDS: INSULIN LISPRO 100 UNIT/ML 3ML SQ SCH ×3 (06:15→16:27)
[2018-12-22 07:27] VITALS: BP 135/60
[2018-12-22] MEDS: ZOSYN 3.375GM+NS 50ML 50 ML IV SCH ×2 (07:49→20:54)
[2018-12-22] MEDS: FAMOTIDINE/PF 20 MG/2 ML VIAL IV SCH (07:49)
[2018-12-22] MEDS: MUPIROCIN OINTMENT 22 GM TUBE TP SCH ×2 (07:50→20:58)
[2018-12-22] MEDS: METHYLPREDNISOLONE SOD SUCC 40MG/ML 1ML IVP SCH (07:50)
[2018-12-22] MEDS ORDERED: FUROSEMIDE 40 MG TABLET PO SCH (09:00)
[2018-12-22] MEDS ORDERED: APIXABAN 5 MG TABLET PO SCH (09:00)
[2018-12-22 09:17] LABS: CREATININE 1.9 mg/dL (0.5-1.5)
[2018-12-22 11:00] VITALS: BP 134/60
[2018-12-22] MEDS ORDERED: PHARMACY COMMUNICATION MISC SCH (11:30)
[2018-12-22 16:00] VITALS: BP 131/60
[2018-12-22 19:27] VITALS: BP 127/51
[2018-12-22] MEDS: RIVAROXABAN 15 MG TABLET PO SCH (20:54)
[2018-12-22] MEDS: ATORVASTATIN CALCIUM 10 MG TABLET PO SCH (20:54)
[2018-12-22] MEDS: INSULIN GLARGINE 100 UNITS/ML 10 ML VIAL SQ SCH (20:56)
[2018-12-22 23:51] VITALS: BP 138/58
[2018-12-23 03:56] VITALS: BP 154/66
[2018-12-23 04:18] LABS: BASOPHILS % (AUTO) 0.7 % (0.0-5.0); EOSINOPHILS % (AUTO) 1.4 % (0.0-8.0); LYMPHOCYTES % (AUTO) 23.2 % (21.0-51.0); MEAN CORPUSCULAR HEMOGLOBIN 29.6 pg (27.0-33.0); MEAN CORPUSCULAR HGB CONC 33.4 g/dL (32.0-36.0); MEAN CORPUSCULAR VOLUME 88.6 fL (79-99); MONOCYTES % (AUTO) 5.5 % (3.0-13.0); NEUTROPHILS % (AUTO) 69.2 % (40.0-77.0); NUCLEATED RED BLOOD CELLS 0.1 % (0.0-0.19); PLATELET COUNT (AUTO) 118 K/uL (130-400); RED BLOOD CELL COUNT(AUTO) 3.72 MIL/uL (4.00-5.50); RED CELL DISTRIBUTION WIDTH 14.5 % (11.0-15.5); WHITE BLOOD COUNT (AUTO) 15.7 K/uL (4.8-10.8)
[2018-12-23 04:42] LABS: CREATININE 1.4 mg/dL (0.5-1.5); POTASSIUM 3.4 mmol/L (3.5-5.1)
[2018-12-23] MEDS: POTASSIUM CHLORIDE 20 MEQ ERTAB PO PRN ×2 (05:40→18:42)
[2018-12-23] MEDS: LEVOTHYROXINE 75 MCG TABLET PO SCH (05:41)
[2018-12-23] MEDS: INSULIN HUMULIN R 100 UNIT/ML 3ML SQ SCH ×4 (05:41→21:08)
[2018-12-23] MEDS: IPRATROPIUM/ALBUTEROL SULFATE 3 ML SOLUTION IH SCH ×4 (07:01→23:34)
[2018-12-23 07:52] VITALS: BP 129/64
[2018-12-23] MEDS: FAMOTIDINE/PF 20 MG/2 ML VIAL IV SCH (08:15)
[2018-12-23] MEDS: PREDNISONE 20 MG TABLET PO SCH (08:15)
[2018-12-23] MEDS: FUROSEMIDE 40 MG TABLET PO SCH (08:15)
[2018-12-23] MEDS: ZOSYN 3.375GM+NS 50ML 50 ML IV SCH ×2 (08:16→20:59)
[2018-12-23] MEDS: INSULIN LISPRO 100 UNIT/ML 3ML SQ SCH ×3 (08:18→17:01)
[2018-12-23] MEDS: MUPIROCIN OINTMENT 22 GM TUBE TP SCH ×2 (08:25→21:09)
[2018-12-23 11:58] VITALS: BP 128/51
[2018-12-23] MEDS ORDERED: FURO40TA7 PO (11:58)
[2018-12-23] MEDS ORDERED: METF-444 PO (11:58)
--- NOTE | 2018-12-23 14:53 | NUR ---
DC PLAN VISITED WITH PATIENT AND SPOUSE. PER SPOUSE HAS ALL EQUIPMENT FOR 02 DOES NOT USE. CAN USE HIS. ASKED IF HE COULD BRING TANK SAID NO NEED SHE ONLY D SATS WHEN WALING AND WE ARE GOING TO TAKE HER DOWN WITH WHEEL CHAIR. SPOUSE AND PATIENT REFUSED OXYGEN SET UP. SAID FEEL SAFE TO GO HOME WANTS TO LEAVE. LET NURSE KNOW. Addendum: 12/23/18 at 1500 by PAULO MORGAN RN CM Amended: Links added.
--- NOTE | 2018-12-23 15:00 | NUR ---
Dr. Eren anderson. OK to discharge home. Prescription in the chart. Notified patient does not want home O2 set up. Requesting for patient to sign medical refusal form.
--- NOTE | 2018-12-23 15:30 | NUR ---
Patient refused to sign refusal for home O2 oxygen and wants to proceed with pt home O2 setup. SERVANDO Maravilla Notified.
[2018-12-23 16:05] VITALS: BP 112/41
--- NOTE | 2018-12-23 17:30 | NUR ---
Request for home O2 sent to insurance by Insurance pending authorization.
[2018-12-23 19:17] VITALS: BP 100/40
[2018-12-23] MEDS: ATORVASTATIN CALCIUM 10 MG TABLET PO SCH (20:59)
[2018-12-23] MEDS: RIVAROXABAN 15 MG TABLET PO SCH (20:59)
[2018-12-23] MEDS: INSULIN GLARGINE 100 UNITS/ML 10 ML VIAL SQ SCH (21:09)
[2018-12-23 23:41] VITALS: BP_SYST 126; BP_SYST 146; BP_DIAS 52; BP_DIAS 61
[2018-12-24 04:10] VITALS: BP 122/60
[2018-12-24 04:34] LABS: HEMATOCRIT 31.2 % (36-48); MEAN CORPUSCULAR HEMOGLOBIN 29.9 pg (27.0-33.0); MEAN CORPUSCULAR HGB CONC 33.7 g/dL (32.0-36.0); MEAN CORPUSCULAR VOLUME 88.6 fL (79-99); PLATELET COUNT (AUTO) 90 K/uL (130-400); RED BLOOD CELL COUNT(AUTO) 3.52 MIL/uL (4.00-5.50); RED CELL DISTRIBUTION WIDTH 14.5 % (11.0-15.5); WHITE BLOOD COUNT (AUTO) 10.4 K/uL (4.8-10.8)
[2018-12-24 04:49] LABS: CREATININE 1.5 mg/dL (0.5-1.5); POTASSIUM 3.9 mmol/L (3.5-5.1)
[2018-12-24 05:17] LABS: PLATELET MORPHOLOGY COMMENT LARGE PLTS PRESENT
[2018-12-24] MEDS: INSULIN HUMULIN R 100 UNIT/ML 3ML SQ SCH ×2 (05:32→11:53)
[2018-12-24] MEDS: LEVOTHYROXINE 75 MCG TABLET PO SCH (05:32)
[2018-12-24] MEDS: IPRATROPIUM/ALBUTEROL SULFATE 3 ML SOLUTION IH SCH ×2 (06:15→11:51)
[2018-12-24] MEDS: INSULIN LISPRO 100 UNIT/ML 3ML SQ SCH ×2 (07:34→11:52)
[2018-12-24 07:45] VITALS: BP 133/62
[2018-12-24] MEDS: ZOSYN 3.375GM+NS 50ML 50 ML IV SCH (08:59)
[2018-12-24] MEDS: FAMOTIDINE/PF 20 MG/2 ML VIAL IV SCH (08:59)
[2018-12-24] MEDS: PREDNISONE 20 MG TABLET PO SCH (08:59)
[2018-12-24] MEDS: FUROSEMIDE 40 MG TABLET PO SCH (09:00)
[2018-12-24] MEDS: MUPIROCIN OINTMENT 22 GM TUBE TP SCH (09:07)
[2018-12-24 11:15] VITALS: BP 116/63
--- NOTE | 2018-12-24 12:05 | NUR ---
PATIENT AMBULATED ON RA WITH OXYGEN SATURATION STAYING ABOVE 90%. NURSE NOTIFIED. Addendum: 12/24/18 at 1206 by MARTINE BERG PT Amended: Links added.
--- NOTE | 2018-12-24 15:50 | NUR ---
PATIENT DISCHARGED HOME WITH PRESCRIPTIONS; PIV REMOVED; TELEPACK REMOVED; ALL QUESTIONS ANSWERED BY MYSELF AND RENETTA SCHILLING AT BEDSIDE
== END 2018-12-24 16:06 | disposition home or self-care (01) | DRG 291 ==
LOC: EDH 06:53 → EDHIP 11:00 → 2DH 16:35 → 2BH 12-17 16:28 → 2AH 12-20 17:06
PROVIDERS: ADMIT Hospitalist; ATTEND Hospitalist
PROC: B246ZZ4 Ultrasonography of Right and Left Heart, Transesophageal (ICD-10-PCS; 2018-12-16)
PROC: 02HQ32Z Insertion of Monitoring Device into Right Pulmonary Artery, Percutaneous Approach (ICD-10-PCS; principal; 2018-12-17)
DX: I13.0 Hypertensive heart and chronic kidney disease with heart failure and stage 1 through stage 4 chronic kidney disease, or unspecified chronic kidney disease (principal); I50.43 Acute on chronic combined systolic (congestive) and diastolic (congestive) heart failure; J96.01 Acute respiratory failure with hypoxia; J18.1 Lobar pneumonia, unspecified organism; J44.0 Chronic obstructive pulmonary disease with (acute) lower respiratory infection; N17.9 Acute kidney failure, unspecified; J44.1 Chronic obstructive pulmonary disease with (acute) exacerbation; I44.2 Atrioventricular block, complete; J45.901 Unspecified asthma with (acute) exacerbation; N18.4 Chronic kidney disease, stage 4 (severe); I42.0 Dilated cardiomyopathy; I49.5 Sick sinus syndrome; D69.6 Thrombocytopenia, unspecified; E11.22 Type 2 diabetes mellitus with diabetic chronic kidney disease; E03.9 Hypothyroidism, unspecified; E66.9 Obesity, unspecified; E78.5 Hyperlipidemia, unspecified; G47.33 Obstructive sleep apnea (adult) (pediatric); I08.1 Rheumatic disorders of both mitral and tricuspid valves; I25.10 Atherosclerotic heart disease of native coronary artery without angina pectoris; I25.5 Ischemic cardiomyopathy; I48.2 Chronic atrial fibrillation; R04.0 Epistaxis; Z79.01 Long term (current) use of anticoagulants; Z82.0 Family history of epilepsy and other diseases of the nervous system; Z82.3 Family history of stroke; Z82.49 Family history of ischemic heart disease and other diseases of the circulatory system; Z82.5 Family history of asthma and other chronic lower respiratory diseases; Z83.3 Family history of diabetes mellitus; Z87.891 Personal history of nicotine dependence; Z95.0 Presence of cardiac pacemaker; Z95.1 Presence of aortocoronary bypass graft; Z95.3 Presence of xenogenic heart valve; Z68.32 Body mass index [BMI] 32.0-32.9, adult
CPT/HCPCS: 36415; 36600; 71045; 71250; 80048; 80053; 82435; 82803; 82947; 82948; 83520; 83605; 83735; 83880; 84100; 84132; 84295; 84443; 84484; 85025; 85027; 85610; 85730; 86038; 86160; 86215; 86235; 86255; 86431; 87040; 87486; 87581; 87633; 87798; 87804; 93005; 93306; 93313; 94640; 94664; 94667; 94668; 94760; 97039; 99291; A4218; A4357; G0378; J1250; J1644; J1815; J1940; J2250; J2543; J2920; J2930; J3010; J3490; J7030

== ENCOUNTER → 2019-04-21 | Outpatient (CLI) | payer BC ==
[~2019-04-21] MED LIST changes: +FURO40TA7 PO; +METF-444 PO; +RIVA15TA PO; -WARF3TAB59 PO
== END | disposition home or self-care (01) ==
LOC: SHCH 09:39
PROVIDERS: ATTEND Internal Medicine Cardiovascular Disease
DX: I08.1 Rheumatic disorders of both mitral and tricuspid valves (principal); I11.0 Hypertensive heart disease with heart failure; I50.32 Chronic diastolic (congestive) heart failure; I48.2 Chronic atrial fibrillation
CPT/HCPCS: 93306

== ENCOUNTER 2019-06-26 06:44 | Day surgery (SDC) | payer BC ==
[2019-06-22 10:29] VITALS: BP 104/44
[2019-06-22 10:29] LABS: EOSINOPHILS % (AUTO) 2.8 % (0.0-8.0); HEMATOCRIT 31.4 % (36-48); LYMPHOCYTES % (AUTO) 24.8 % (21.0-51.0); MEAN CORPUSCULAR HEMOGLOBIN 28.7 pg (27.0-33.0); MEAN CORPUSCULAR HGB CONC 33.1 g/dL (32.0-36.0); MEAN CORPUSCULAR VOLUME 86.5 fL (79-99); NEUTROPHILS % (AUTO) 64.4 % (40.0-77.0); PLATELET COUNT (AUTO) 86 K/uL (130-400); RED BLOOD CELL COUNT(AUTO) 3.63 MIL/uL (4.00-5.50); RED CELL DISTRIBUTION WIDTH 18.3 % (11.0-15.5); WHITE BLOOD COUNT (AUTO) 4.4 K/uL (4.8-10.8)
[2019-06-22 10:44] LABS: CREATININE 1.7 mg/dL (0.5-1.5); POTASSIUM 3.9 mmol/L (3.5-5.1)
[2019-06-22 10:48] LABS: INR 1.48 (0.85-1.15)
--- NOTE | 2019-06-22 11:09 | NUR ---
CALLED SCHEDULING AND SPOKE WITH NORA, PATIENT WILL BE SCHEDULED FOR PROCEDURE AT 8:30AM CALLED JESSICA MINAYA (SERVICE WRITER ADVISOR) AND INFORMED HIM PATIENT SCHEDULED FOR CJ AT 8:30AM ON 06/26/19
--- NOTE | 2019-06-23 16:13 | NUR ---
REPORTED LABS TO MD OFFICE OF WBC 4.4, H/H 10.4/31.4, PLT 86 , PT 15.0, INR 1.48, AND BUN 35, PROFESSOR OF MANAGEMENT 1.7, PER CHAYA PERRY NO NEW ORDER, ALSO CLARIFIED IF EKG WAS NEEDED DUE TO ORDERS INDICATING EKG, PER JULIA OFFICE NO NEED FOR EKG.
[~2019-06-26] VITALS: Ht 149.9 cm; Wt 66.6 kg
[2019-06-26] VITALS (23 sets, daily range): BP systolic 99–158; BP diastolic 35–64
[~2019-06-26 06:44] MED LIST changes: -DOXY100C2 PO; +FURO20TA4 PO; -FURO40TA7 PO; -PRAV20TA4 PO; +SODIUM CHLORIDE 0.9% 1000ML 1,000 ML IV SCH
[2019-06-26] MEDS ORDERED: FENTANYL CITRATE PF 50 MCG/1 ML 2ML VIAL ONE (08:16)
[2019-06-26] MEDS ORDERED: MIDAZOLAM HCL 1 MG/ML 2ML VIAL ONE (08:16)
[2019-06-26] MEDS ORDERED: LIDOCAINE HCL 2% VISCOUS 15 ML UDCUP ONE (09:05)
--- NOTE | 2019-06-26 09:08 | NUR ---
LATE ENTRY PROCEDURE TIME OUT AT 0905, JESSICA CHOWDHURY ETCHER PRINTED CIRCUIT BOARDS AND DOCTOR CAN STUDENT PRESENT , START TIME OF PROCEDURE AND MEDICATIONS ADMINITRATION WAS AT 0908, SCOPE IN AT 0915, MONITORED PT VITALS DURING PROCEDURE, STABLE NO DISTRESS AND SCOPE REMOVAL BY DOCTOR CAN WAS 0935AM (END TIME). COMMENCED RECOVERY AT 0935AM.
== END 2019-06-26 12:41 | disposition home or self-care (01) ==
LOC: DAH 06:44
PROVIDERS: ATTEND Internal Medicine Cardiovascular Disease
DX: T82.897A Other specified complication of cardiac prosthetic devices, implants and grafts, initial encounter (principal); Y83.8 Other surgical procedures as the cause of abnormal reaction of the patient, or of later complication, without mention of misadventure at the time of the procedure; I48.91 Unspecified atrial fibrillation; I42.9 Cardiomyopathy, unspecified; Z88.5 Allergy status to narcotic agent; Z79.899 Other long term (current) drug therapy; Z87.891 Personal history of nicotine dependence
CPT/HCPCS: 36415; 80048; 82948 ×2; 85025; 85610; 85730; 93312; 93325; A4215; A4216; A4221; A4222; A4223 ×3; A4606; A4615; A4663; J2250; J7030; 93313; 99152; 99153; J3010

== ENCOUNTER → 2019-10-16 | Outpatient (CLI) | payer BC ==
[~2019-10-16] MED LIST changes: -SODIUM CHLORIDE 0.9% 1000ML 1,000 ML IV SCH
== END | disposition home or self-care (01) ==
LOC: SHCH 08:16
PROVIDERS: ATTEND Internal Medicine Cardiovascular Disease
DX: Z95.3 Presence of xenogenic heart valve (principal)
CPT/HCPCS: 93306

== ENCOUNTER 2020-02-25 16:23 | Inpatient (IN) | payer BC ==
[~2020-02-25] VITALS: Ht 144.8 cm; Wt 70.3 kg
[2020-02-25 17:18] LABS: BASOPHILS % (AUTO) 0.3 % (0.0-5.0); EOSINOPHILS % (AUTO) 0.6 % (0.0-8.0); LYMPHOCYTES % (AUTO) 21.1 % (21.0-51.0); MEAN CORPUSCULAR HEMOGLOBIN 28.2 pg (27.0-33.0); MEAN CORPUSCULAR HGB CONC 30.5 g/dL (32.0-36.0); MEAN CORPUSCULAR VOLUME 92.3 fL (79-99); MONOCYTES % (AUTO) 8.1 % (3.0-13.0); NEUTROPHILS % (AUTO) 69.3 % (40.0-77.0); PLATELET COUNT (AUTO) 115 K/uL (130-400); RED BLOOD CELL COUNT(AUTO) 1.42 MIL/uL (4.00-5.50); RED CELL DISTRIBUTION WIDTH 18.9 % (11.0-15.5); WHITE BLOOD COUNT (AUTO) 6.8 K/uL (4.8-10.8)
[2020-02-25 17:28] LABS: CREATININE 1.7 mg/dL (0.5-1.5); POTASSIUM 3.9 mmol/L (3.5-5.1)
[2020-02-25 17:31] LABS: HEMATOCRIT 13.1 % (36-48)
[2020-02-25 17:33] LABS: ALBUMIN 2.6 g/dL (3.5-5.0); BILIRUBIN,DIRECT 0.2 mg/dL (0.0-0.3); BILIRUBIN,TOTAL 0.5 mg/dL (0.2-1.0); TOTAL PROTEIN, SERUM 5.6 g/dL (6.0-8.3)
[2020-02-25] MEDS ORDERED: CEFTRIAXONE SODIUM 2 GM VIAL ONE (18:21)
[2020-02-25] MEDS: SODIUM CHLORIDE 0.9% 1000ML 1,000 ML IV SCH (20:57)
[2020-02-25] MEDS: HYDROCORTISONE SOD SUCCINATE 100 MG/2 ML VIAL IV SCH (21:00)
[2020-02-25] MEDS ORDERED: ONDANSETRON HCL 4 MG/2 ML VIAL IV PRN (21:00)
[2020-02-25] MEDS ORDERED: ACETAMINOPHEN 325 MG TAB PO PRN ×2 (21:00)
[2020-02-26] MEDS: LEVOTHYROXINE 75 MCG TABLET PO SCH (06:30)
[2020-02-26] MEDS: SODIUM CHLORIDE 0.9% 1000ML 1,000 ML IV SCH ×2 (06:57→16:57)
[2020-02-26] MEDS ORDERED: SODIUM CHLORIDE 0.9% 100 ML IV ONE (08:48)
[2020-02-26 08:49] LABS: BASOPHILS % (AUTO) 0.4 % (0.0-5.0); EOSINOPHILS % (AUTO) 1.8 % (0.0-8.0); HEMATOCRIT 23.1 % (36-48); LYMPHOCYTES % (AUTO) 18.8 % (21.0-51.0); MEAN CORPUSCULAR HEMOGLOBIN 28.8 pg (27.0-33.0); MEAN CORPUSCULAR HGB CONC 32.5 g/dL (32.0-36.0); MEAN CORPUSCULAR VOLUME 88.8 fL (79-99); MONOCYTES % (AUTO) 7.4 % (3.0-13.0); NEUTROPHILS % (AUTO) 70.8 % (40.0-77.0); PLATELET COUNT (AUTO) 88 K/uL (130-400); RED CELL DISTRIBUTION WIDTH 16.4 % (11.0-15.5); WHITE BLOOD COUNT (AUTO) 7.8 K/uL (4.8-10.8)
[2020-02-26] MEDS ORDERED: LEVOTHYROXINE 25 MCG TABLET ONE (08:49)
[2020-02-26] MEDS ORDERED: ROSU5TAB12 PO (08:55)
[2020-02-26] MEDS ORDERED: FURO40TA7 PO (08:57)
[2020-02-26] MEDS: HYDROCORTISONE SOD SUCCINATE 100 MG/2 ML VIAL IV SCH ×4 (09:00→21:00)
[2020-02-26] MEDS: PANTOPRAZOLE SODIUM 80 MG in SODIUM CHLORIDE 0.9% 100 ML IV SCH (09:00)
[2020-02-26] MEDS ORDERED: HYDROCORTISONE SOD SUCCINATE 100 MG/2 ML VIAL ONE (14:42)
[2020-02-27] MEDS: SODIUM CHLORIDE 0.9% 1000ML 1,000 ML IV SCH ×3 (02:57→22:57)
[2020-02-27 05:10] LABS: BASOPHILS % (AUTO) 0.3 % (0.0-5.0); EOSINOPHILS % (AUTO) 1.4 % (0.0-8.0); HEMATOCRIT 22.7 % (36-48); LYMPHOCYTES % (AUTO) 14.4 % (21.0-51.0); MEAN CORPUSCULAR HEMOGLOBIN 28.5 pg (27.0-33.0); MEAN CORPUSCULAR HGB CONC 31.7 g/dL (32.0-36.0); MEAN CORPUSCULAR VOLUME 89.7 fL (79-99); MONOCYTES % (AUTO) 6.6 % (3.0-13.0); NEUTROPHILS % (AUTO) 76.8 % (40.0-77.0); PLATELET COUNT (AUTO) 83 K/uL (130-400); RED BLOOD CELL COUNT(AUTO) 2.53 MIL/uL (4.00-5.50); RED CELL DISTRIBUTION WIDTH 17.2 % (11.0-15.5); WHITE BLOOD COUNT (AUTO) 5.9 K/uL (4.8-10.8)
[2020-02-27 05:47] LABS: CREATININE 1.4 mg/dL (0.5-1.5); POTASSIUM 4.2 mmol/L (3.5-5.1)
[2020-02-27] MEDS: LEVOTHYROXINE 75 MCG TABLET PO SCH (06:30)
[2020-02-27] MEDS ORDERED: LEVOTHYROXINE 25 MCG TABLET ONE (08:24)
[2020-02-27] MEDS ORDERED: SODIUM CHLORIDE 0.9% 100 ML IV ONE (08:26)
[2020-02-27] MEDS ORDERED: HYDROCORTISONE SOD SUCCINATE 100 MG/2 ML VIAL ONE (08:27)
[2020-02-27] MEDS: PANTOPRAZOLE SODIUM 80 MG in SODIUM CHLORIDE 0.9% 100 ML IV SCH ×2 (09:00→20:00)
[2020-02-27] MEDS: HYDROCORTISONE SOD SUCCINATE 100 MG/2 ML VIAL IV SCH ×4 (09:00→20:28)
[2020-02-27 13:20] VITALS: BP 128/43
[2020-02-27 16:00] VITALS: BP 122/53
[2020-02-27 19:30] VITALS: BP 118/47
[2020-02-28] VITALS (13 sets, daily range): BP systolic 82–127; BP diastolic 31–64
--- NOTE | 2020-02-28 00:32 | NUR ---
Initiated Protonix Drip Patient protonix drip was initiated at the beginning of my shift. The order was to be carried out 02/24 upon admission. She is still passing black tarry stools as of now. She has been informed that after midnight, she will be NPO for her EGD tomorrow at 8am. She is resting in the bed now with no complaints or S/S of distress. Vitals are stable. She is being closely monitored.
[2020-02-28] MEDS: LEVOTHYROXINE 75 MCG TABLET PO SCH (06:02)
[2020-02-28 06:40] LABS: BASOPHILS % (AUTO) 0.2 % (0.0-5.0); HEMATOCRIT 24.8 % (36-48); LYMPHOCYTES % (AUTO) 14.3 % (21.0-51.0); MEAN CORPUSCULAR HEMOGLOBIN 28.6 pg (27.0-33.0); MEAN CORPUSCULAR HGB CONC 31.9 g/dL (32.0-36.0); MEAN CORPUSCULAR VOLUME 89.9 fL (79-99); MONOCYTES % (AUTO) 3.8 % (3.0-13.0); NEUTROPHILS % (AUTO) 80.9 % (40.0-77.0); PLATELET COUNT (AUTO) 107 K/uL (130-400); RED BLOOD CELL COUNT(AUTO) 2.76 MIL/uL (4.00-5.50); RED CELL DISTRIBUTION WIDTH 17.1 % (11.0-15.5); WHITE BLOOD COUNT (AUTO) 6.3 K/uL (4.8-10.8)
[2020-02-28 06:52] LABS: INR 1.11 (0.85-1.15); PARTIAL THROMBOPLASTIN TIME 26.8 SEC (26.3-35.5); PROTHROMBIN TIME 11.9 SEC (9.6-11.6)
[2020-02-28 06:59] LABS: ALBUMIN 2.8 g/dL (3.5-5.0); CREATININE 1.6 mg/dL (0.5-1.5); POTASSIUM 4.4 mmol/L (3.5-5.1); TOTAL PROTEIN, SERUM 5.9 g/dL (6.0-8.3)
[2020-02-28] MEDS ORDERED: PROPOFOL 10 MG/ML 20ML VIAL IV ONE (08:07)
[2020-02-28] MEDS ORDERED: EPHEDRINE SULFATE 50 MG/ML AMPULE ONE (08:28)
[2020-02-28] MEDS: SODIUM CHLORIDE 0.9% 1000ML 1,000 ML IV SCH ×2 (08:57→19:05)
[2020-02-28] MEDS: HYDROCORTISONE SOD SUCCINATE 100 MG/2 ML VIAL IV SCH ×4 (09:00→21:00)
[2020-02-28] MEDS: PANTOPRAZOLE SODIUM 40 MG TABLET.DR PO SCH (11:47)
[2020-02-28] MEDS: PEG 3350/NA SULF,BICARB,CL/KCL 4000 ML SOLN PO SCH ×2 (14:03→18:40)
--- NOTE | 2020-02-28 16:00 | NUR ---
IA- SPOKE OT SPOUSE FO [facility] PLANNING- HELENA SPOUSE STATES PATIENT IS INDPENDENT, ACTIVE, EMPLOYED, DRIVES, FOLLOW WITH DR. LUU, HAS A BP CUFF BECAUSE SHE DOES CHECK HER BP, BUT HAS NO OTHER DME. HOME SAFE AND ACCESSIBLE, DCP HOME, SPOUSE TO PROVIDE TRANSPORT CM TO FOLLOW Addendum: 02/29/20 at 1936 by AMIRA RICHARDSON RN CM Amended: Links added.
--- NOTE | 2020-02-28 17:53 | NUR ---
COVID19 PCR RESULTS CAME BACK NEGATIVE, PT WAS NOTIFY. AJ, KNIFE SHARPENER WAS NOTIFY AND ORDER THE PT TO BE TRANSFERRED TO [facility] NON COVID DEPT., JULIANO CALL NOTIFY AND PT WAS ASSIGN A BED IN DAY PT DEPT. REPORT GIVEN TO RN AND PT WAS TRANSFERRED IN WHEELCHAIR.
--- NOTE | 2020-02-28 18:00 | NUR ---
TRANSFERRED PT HERE VIA WHEELCHAIR FROM ROOM 422. PT AAOX3. ORIENTED TO ROOM. AWARE OF COLONOSCOPY TOMORROW AM AND WILL BE NPO AFTER MIDNIGHT. INSTRUCTED ON GOLYTELY TO BE STARTED AND BEDSIDE COMMODE WILL BE BROUGHT FOR PT COMFORT. VERBALIZED UNDERSTANDING.
[2020-02-29] VITALS: BP 125/60
[2020-02-29 04:15] VITALS: BP 93/66
[2020-02-29] MEDS: SODIUM CHLORIDE 0.9% 1000ML 1,000 ML IV SCH (04:48)
[2020-02-29] MEDS: LEVOTHYROXINE 75 MCG TABLET PO SCH (04:48)
[2020-02-29 05:18] LABS: RETICULOCYTE % (AUTO) 5.5 % (0.42-2.23)
[2020-02-29 05:42] LABS: ALBUMIN 2.9 g/dL (3.5-5.0); CREATININE 1.4 mg/dL (0.5-1.5); CRP QUANTITATIVE 5.3 mg/L (0.00-9.0); POTASSIUM 4.2 mmol/L (3.5-5.1); TOTAL PROTEIN, SERUM 5.9 g/dL (6.0-8.3)
[2020-02-29 06:45] LABS: % IRON SATURATION 4.6 % (22-44)
[2020-02-29 07:45] VITALS: BP 124/57
[2020-02-29] MEDS: PANTOPRAZOLE SODIUM 40 MG TABLET.DR PO SCH (08:35)
[2020-02-29] MEDS: HYDROCORTISONE SOD SUCCINATE 100 MG/2 ML VIAL IV SCH ×4 (08:35→20:19)
[2020-02-29] MEDS: FUROSEMIDE 40 MG TABLET PO SCH (08:36)
[2020-02-29] MEDS: LOSARTAN 50 MG TABLET PO SCH (08:36)
[2020-02-29 12:00] VITALS: BP 121/51
--- NOTE | 2020-02-29 14:46 | NUR ---
OXYGEN PT PLACED ON 02 2LN C , PT 02 SAT ON ROOM AIR FROM 90-92% . DR MALDONADO AWARE , ORDERS GIVEN TO START PT ON 02 2L NC PRN
[2020-02-29] MEDS ORDERED: IRON SUCROSE COMPLEX 300 MG in SODIUM CHLORIDE 0.9% 50 ML IV SCH (16:00)
[2020-02-29] MEDS ORDERED: PEG 3350/NA SULF,BICARB,CL/KCL 4000 ML SOLN PO SCH (16:00)
--- NOTE | 2020-02-29 16:38 | NUR ---
consult CARDIOLOGY CONSULT DONE , [facility] CALLED. DR. GILL BUSINESS COMPUTERS TEACHER.PENDING CALL BACK
--- NOTE | 2020-02-29 16:51 | NUR ---
CONSULT SPOKE TO DR. GILL (CARDIOLOGY ) INFORMED HIM OF CONSULT . HE WILL SEE PATIENT
[2020-02-29] MEDS ORDERED: EPOETIN ALFA 10,000 UNIT/ML VIAL SQ SCH (17:00)
--- NOTE | 2020-02-29 19:15 | NUR ---
REPORT REPORT GIVEN TO RICARDO RN TO RESUME CARE , PT AWAKE AND ALERT IN BED,NO DISTRESS NOTED. PT INSTRUCTED TO CONTINUE GOLYTELY FOR PROCEDURE IN AM
[2020-02-29 20:09] VITALS: BP 98/56
[2020-02-29] MEDS: ROSUVASTATIN CALCIUM 5 MG PO SCH (20:20)
[2020-03-01] VITALS (19 sets, daily range): BP systolic 85–122; BP diastolic 34–57
[2020-03-01] MEDS: HYDROCORTISONE SOD SUCCINATE 100 MG/2 ML VIAL IV SCH (05:59)
[2020-03-01] MEDS: LEVOTHYROXINE 75 MCG TABLET PO SCH (05:59)
--- NOTE | 2020-03-01 07:05 | NUR ---
Pt TRANSFERRED TO COLONOSCOPY PROCEDURE VIA STRETCHER. Pt AWAKE AND ALERT, DENIES ANY PAIN.
[2020-03-01 07:11] LABS: HEMATOCRIT 23.2 % (36-48); LYMPHOCYTES % (AUTO) 16.3 % (21.0-51.0); MEAN CORPUSCULAR HEMOGLOBIN 27.6 pg (27.0-33.0); MEAN CORPUSCULAR HGB CONC 31.9 g/dL (32.0-36.0); MEAN CORPUSCULAR VOLUME 86.6 fL (79-99); MONOCYTES % (AUTO) 5.4 % (3.0-13.0); NEUTROPHILS % (AUTO) 77.2 % (40.0-77.0); PLATELET COUNT (AUTO) 93 K/uL (130-400); RED BLOOD CELL COUNT(AUTO) 2.68 MIL/uL (4.00-5.50); WHITE BLOOD COUNT (AUTO) 3.7 K/uL (4.8-10.8)
[2020-03-01 07:20] LABS: CREATININE 1.6 mg/dL (0.5-1.5)
[2020-03-01 07:31] LABS: POTASSIUM 2.7 mmol/L (3.5-5.1)
[2020-03-01] MEDS ORDERED: PROPOFOL 10 MG/ML 20ML VIAL IV ONE (07:49)
[2020-03-01] MEDS: PANTOPRAZOLE SODIUM 40 MG TABLET.DR PO SCH (09:59)
[2020-03-01] MEDS: FUROSEMIDE 40 MG TABLET PO SCH (10:00)
[2020-03-01] MEDS: LOSARTAN 50 MG TABLET PO SCH (10:00)
--- NOTE | 2020-03-01 12:30 | NUR ---
SEWER SEPARATION DESIGNER REPORTED A LOW DIASTOLIC PRESSURE OF 37 AND REPEATED BP OF 95/35 CONSISTENT WITH PREVIOUS BLOOD PRESSURES. PATIENT IS ON LASIX AND LOSARTAN AND PATIENT STATED THAT SHE FEELS FINE. WILL CONTINUE TO MONITOR AND WILL MAKE DR AWARE. NO S/S OF ANY DISTRESS NOR ANY DIZZINESS AT THIS TIME. PATIENT IS ABLE TO AMBULATE TO THE BEDSIDE COMMODE WITHOUT ASSISTANCE WITHOUT DIFFICULTY. INSTRUCTED TO CALL IF SHE HAD ANY S/S SUCH DIZZINESS OR WEAKNESS OF ANY KIND. Addendum: 03/01/20 at 1323 by DIONY NGO RN RN Amended: Links added.
[2020-03-01] MEDS ORDERED: POTASSIUM CHLORIDE 20 MEQ ERTAB PO SCH (16:15)
[2020-03-01] MEDS: ROSUVASTATIN CALCIUM 5 MG PO SCH (21:19)
[2020-03-02] VITALS (7 sets, daily range): BP systolic 98–115; BP diastolic 36–45
[2020-03-02 05:10] LABS: MEAN CORPUSCULAR HEMOGLOBIN 28.6 pg (27.0-33.0); MEAN CORPUSCULAR HGB CONC 32.7 g/dL (32.0-36.0); MEAN CORPUSCULAR VOLUME 87.3 fL (79-99); NUCLEATED RED BLOOD CELLS 0.3 % (0.0-0.19); RED BLOOD CELL COUNT(AUTO) 2.52 MIL/uL (4.00-5.50); RED CELL DISTRIBUTION WIDTH 16.2 % (11.0-15.5); WHITE BLOOD COUNT (AUTO) 5.8 K/uL (4.8-10.8)
[2020-03-02 05:35] LABS: CREATININE 1.8 mg/dL (0.5-1.5)
--- NOTE | 2020-03-02 06:10 | NUR ---
END OF SHIFT PATIENT VSS 99-100s/35-44s. Patient denies any symptoms. BP consistent with previous shift. Per report, Javad aware of K 3.0 and replaced with PO 40 mEq x1 prior to K draw. Will continue to monitor.
[2020-03-02] MEDS: LEVOTHYROXINE 75 MCG TABLET PO SCH (06:29)
[2020-03-02] MEDS: PANTOPRAZOLE SODIUM 40 MG TABLET.DR PO SCH (08:22)
[2020-03-02] MEDS: FUROSEMIDE 40 MG TABLET PO SCH (08:22)
[2020-03-02] MEDS: LOSARTAN 50 MG TABLET PO SCH (09:00)
[2020-03-02] MEDS ORDERED: POTASSIUM CHLORIDE 20 MEQ ERTAB PO SCH (16:30)
[2020-03-02] MEDS: ROSUVASTATIN CALCIUM 5 MG PO SCH (19:57)
[2020-03-03 03:25] VITALS: BP 105/47
[2020-03-03 04:29] LABS: BASOPHILS % (AUTO) 0.2 % (0.0-5.0); EOSINOPHILS % (AUTO) 1.6 % (0.0-8.0); HEMATOCRIT 22.9 % (36-48); LYMPHOCYTES % (AUTO) 20.7 % (21.0-51.0); MEAN CORPUSCULAR HEMOGLOBIN 28.5 pg (27.0-33.0); MEAN CORPUSCULAR HGB CONC 31.9 g/dL (32.0-36.0); MEAN CORPUSCULAR VOLUME 89.5 fL (79-99); MONOCYTES % (AUTO) 6.5 % (3.0-13.0); NEUTROPHILS % (AUTO) 70.5 % (40.0-77.0); PLATELET COUNT (AUTO) 106 K/uL (130-400); RED BLOOD CELL COUNT(AUTO) 2.56 MIL/uL (4.00-5.50); RED CELL DISTRIBUTION WIDTH 16.4 % (11.0-15.5); WHITE BLOOD COUNT (AUTO) 6.2 K/uL (4.8-10.8)
[2020-03-03] MEDS: LEVOTHYROXINE 75 MCG TABLET PO SCH (06:20)
[2020-03-03 06:34] LABS: CREATININE 1.6 mg/dL (0.5-1.5)
[2020-03-03 07:19] VITALS: BP 99/41
[2020-03-03] MEDS: LOSARTAN 50 MG TABLET PO SCH (09:00)
[2020-03-03] MEDS: FUROSEMIDE 40 MG TABLET PO SCH (09:14)
[2020-03-03] MEDS: PANTOPRAZOLE SODIUM 40 MG TABLET.DR PO SCH (09:14)
[2020-03-03 11:28] VITALS: BP 108/42
[2020-03-03 15:49] VITALS: BP 102/38
[2020-03-03 16:04] LABS: HEMATOCRIT 24.6 % (36-48)
[2020-03-03] MEDS ORDERED: POTASSIUM CHLORIDE 10MEQ/100ML 100 ML IV PRN (16:30)
[2020-03-03] MEDS ORDERED: LIDOCAINE HCL-MPF 1% 2ML VIAL IV PRN (16:30)
[2020-03-03] MEDS ORDERED: POTASSIUM CHLORIDE 10% ELIXIR 20 MEQ/15 ML UDCUP PO PRN (16:30)
[2020-03-03] MEDS ORDERED: MAGNESIUM 2GM PREMIX 50ML 50 ML IV PRN (17:30)
[2020-03-03] MEDS: POTASSIUM CHLORIDE 20 MEQ ERTAB PO PRN (17:49)
[2020-03-03 19:00] VITALS: BP_SYST 105; BP_SYST 139; BP_DIAS 35; BP_DIAS 73
[2020-03-03] MEDS: ROSUVASTATIN CALCIUM 5 MG PO SCH (21:00)
[2020-03-03] MEDS ORDERED: PHARMACY COMMUNICATION MISC SCH (23:30)
[2020-03-03 23:38] VITALS: BP 107/37
[2020-03-04 03:34] VITALS: BP 96/41
[2020-03-04 04:37] LABS: BASOPHILS % (AUTO) 0.2 % (0.0-5.0); EOSINOPHILS % (AUTO) 2.8 % (0.0-8.0); HEMATOCRIT 23.3 % (36-48); LYMPHOCYTES % (AUTO) 19.9 % (21.0-51.0); MEAN CORPUSCULAR HEMOGLOBIN 27.9 pg (27.0-33.0); MEAN CORPUSCULAR HGB CONC 30.9 g/dL (32.0-36.0); MEAN CORPUSCULAR VOLUME 90.3 fL (79-99); MONOCYTES % (AUTO) 7.6 % (3.0-13.0); PLATELET COUNT (AUTO) 107 K/uL (130-400); RED BLOOD CELL COUNT(AUTO) 2.58 MIL/uL (4.00-5.50); RED CELL DISTRIBUTION WIDTH 16.7 % (11.0-15.5); WHITE BLOOD COUNT (AUTO) 5.8 K/uL (4.8-10.8)
[2020-03-04 05:00] LABS: ALBUMIN 2.6 g/dL (3.5-5.0); BILIRUBIN,TOTAL 0.7 mg/dL (0.2-1.0); CREATININE 1.4 mg/dL (0.5-1.5); MAGNESIUM 1.7 mg/dL (1.80-2.40); POTASSIUM 3.2 mmol/L (3.5-5.1); TOTAL PROTEIN, SERUM 5.2 g/dL (6.0-8.3)
[2020-03-04] MEDS: LEVOTHYROXINE 75 MCG TABLET PO SCH (06:51)
[2020-03-04] MEDS: POTASSIUM CHLORIDE 20 MEQ ERTAB PO PRN ×3 (06:51→11:38)
[2020-03-04 08:18] VITALS: BP 82/31
[2020-03-04] MEDS: LOSARTAN 50 MG TABLET PO SCH (08:33)
[2020-03-04] MEDS: SPIRONOLACTONE 25 MG TAB PO SCH (08:41)
[2020-03-04] MEDS: PANTOPRAZOLE SODIUM 40 MG TABLET.DR PO SCH (08:41)
[2020-03-04] MEDS ORDERED: SPIRONOLACTONE 25 MG TAB PO SCH (09:00)
[2020-03-04 12:10] VITALS: BP 101/30
[2020-03-04 16:26] VITALS: BP 107/40
[2020-03-04 20:00] VITALS: BP 106/40
[2020-03-04] MEDS: ROSUVASTATIN CALCIUM 5 MG PO SCH (21:21)
[2020-03-05 00:31] VITALS: BP 108/43
[2020-03-05] MEDS: LEVOTHYROXINE 75 MCG TABLET PO SCH (05:15)
[2020-03-05 06:38] VITALS: BP 103/48
[2020-03-05 08:30] VITALS: BP 103/48
[2020-03-05] MEDS: LOSARTAN 50 MG TABLET PO SCH (09:00)
[2020-03-05 09:59] LABS: BASOPHILS % (AUTO) 0.4 % (0.0-5.0); EOSINOPHILS % (AUTO) 2.6 % (0.0-8.0); HEMATOCRIT 24.5 % (36-48); LYMPHOCYTES % (AUTO) 15.7 % (21.0-51.0); MEAN CORPUSCULAR HEMOGLOBIN 28.4 pg (27.0-33.0); MEAN CORPUSCULAR HGB CONC 30.6 g/dL (32.0-36.0); MEAN CORPUSCULAR VOLUME 92.8 fL (79-99); MONOCYTES % (AUTO) 9.3 % (3.0-13.0); NEUTROPHILS % (AUTO) 71.4 % (40.0-77.0); PLATELET COUNT (AUTO) 90 K/uL (130-400); RED BLOOD CELL COUNT(AUTO) 2.64 MIL/uL (4.00-5.50); RED CELL DISTRIBUTION WIDTH 17.5 % (11.0-15.5); WHITE BLOOD COUNT (AUTO) 5.4 K/uL (4.8-10.8)
[2020-03-05 10:13] LABS: POTASSIUM 3.4 mmol/L (3.5-5.1)
[2020-03-05 10:14] LABS: CREATININE 1.4 mg/dL (0.5-1.5)
[2020-03-05] MEDS: PANTOPRAZOLE SODIUM 40 MG TABLET.DR PO SCH (10:37)
[2020-03-05] MEDS: SPIRONOLACTONE 25 MG TAB PO SCH (10:37)
[2020-03-05 16:12] VITALS: BP 105/45
[2020-03-05 20:04] VITALS: BP 100/38
[2020-03-05] MEDS: ROSUVASTATIN CALCIUM 5 MG PO SCH (20:14)
[2020-03-06 00:29] VITALS: BP 140/72
[2020-03-06 03:25] LABS: HEMATOCRIT 25.7 % (36-48); MEAN CORPUSCULAR HEMOGLOBIN 27.5 pg (27.0-33.0); MEAN CORPUSCULAR VOLUME 91.8 fL (79-99); RED BLOOD CELL COUNT(AUTO) 2.8 MIL/uL (4.00-5.50); RED CELL DISTRIBUTION WIDTH 17.3 % (11.0-15.5); WHITE BLOOD COUNT (AUTO) 5.8 K/uL (4.8-10.8)
[2020-03-06 03:42] VITALS: BP 109/43
[2020-03-06 03:42] LABS: CREATININE 1.2 mg/dL (0.5-1.5); POTASSIUM 3.8 mmol/L (3.5-5.1)
[2020-03-06] MEDS: LEVOTHYROXINE 75 MCG TABLET PO SCH (06:00)
[2020-03-06 08:00] VITALS: BP 90/35
[2020-03-06] MEDS ORDERED: COMPOUND IV MISC 1 EACH IVSOLN MISC PRN (09:00)
[2020-03-06] MEDS: SPIRONOLACTONE 25 MG TAB PO SCH (09:33)
[2020-03-06] MEDS: PANTOPRAZOLE SODIUM 40 MG TABLET.DR PO SCH (09:33)
[2020-03-06] MEDS: IRON SUCROSE COMPLEX 100 MG in SODIUM CHLORIDE 0.9% 50 ML IV SCH (09:33)
[2020-03-06] MEDS: RIVAROXABAN 15 MG TABLET PO SCH (09:34)
--- NOTE | 2020-03-06 09:58 | NUR ---
RDSCREEN - LOS X 10 Pt admitted with Acute symptomatic Blood loss anemia. S/p 3 units PRBC, s/p mitral valve replacement as per EMR. Pt with 75gm CC diet order in place. Pt tolerating diet order with no report of GI distress, PO intake at 100%. Pt LBM 03/05/20. Recommend add Heart healthy diet modifier Recommend 30mL ProMod QD RD to continue to monitor. Please notify as additional nutrition concerns arise. Thank you.
[2020-03-06 12:09] VITALS: BP 102/34
[2020-03-06] MEDS: FUROSEMIDE 40 MG TABLET PO SCH (12:11)
[2020-03-06 16:36] VITALS: BP 113/45
[2020-03-06] MEDS: LOSARTAN 50 MG TABLET PO SCH (16:39)
[2020-03-06 20:56] VITALS: BP 102/33
[2020-03-06] MEDS: ROSUVASTATIN CALCIUM 5 MG PO SCH (21:00)
[2020-03-07] VITALS: BP 102/39
[2020-03-07 03:23] LABS: HEMATOCRIT 24.3 % (36-48); MEAN CORPUSCULAR HEMOGLOBIN 28.3 pg (27.0-33.0); MEAN CORPUSCULAR HGB CONC 30.9 g/dL (32.0-36.0); MEAN CORPUSCULAR VOLUME 91.7 fL (79-99); RED BLOOD CELL COUNT(AUTO) 2.65 MIL/uL (4.00-5.50); RED CELL DISTRIBUTION WIDTH 17.6 % (11.0-15.5); WHITE BLOOD COUNT (AUTO) 5.1 K/uL (4.8-10.8)
[2020-03-07 03:31] LABS: CREATININE 1.6 mg/dL (0.5-1.5); POTASSIUM 3.6 mmol/L (3.5-5.1)
[2020-03-07 03:45] VITALS: BP 108/43
[2020-03-07] MEDS: LEVOTHYROXINE 75 MCG TABLET PO SCH (06:27)
[2020-03-07] MEDS ORDERED: POTASSIUM CHLORIDE 20 MEQ ERTAB PO SCH (08:30)
[2020-03-07] MEDS: FUROSEMIDE 40 MG TABLET PO SCH (09:00)
--- NOTE | 2020-03-07 09:44 | NUR ---
LASIX AM PO LASIX DOSE HELD PER SHAYNA DIETITIAN, ORDER FOR IV LASIX X 1 TO BE GIVEN
[2020-03-07] MEDS ORDERED: FUROSEMIDE 10 MG/ML 2ML VIAL IV SCH (09:45)
[2020-03-07] MEDS ORDERED: PANT40TA25 PO (09:48)
[2020-03-07] MEDS ORDERED: FUROSEMIDE 10 MG/ML 2ML VIAL IVP SCH (10:00)
[2020-03-07] MEDS: IRON SUCROSE COMPLEX 100 MG in SODIUM CHLORIDE 0.9% 50 ML IV SCH (10:03)
[2020-03-07] MEDS: PANTOPRAZOLE SODIUM 40 MG TABLET.DR PO SCH (10:04)
[2020-03-07] MEDS: RIVAROXABAN 15 MG TABLET PO SCH (10:04)
[2020-03-07 12:03] VITALS: BP 107/36
[2020-03-07] MEDS: LOSARTAN 50 MG TABLET PO SCH (13:12)
[2020-03-07 16:00] VITALS: BP 114/42
[2020-03-07] MEDS ORDERED: FERR325T22 PO (16:07)
[2020-03-07] MEDS ORDERED: DOCU240C25 PO (16:07)
--- NOTE | 2020-03-07 17:00 | NUR ---
DC PT AWAKE AND ALERT AND ORIENTED. PT DENIES CHEST PAIN, DENIES SOB OR LABORED RESPIRATIONS. DC INSTRUCTIONS GIVEN AND EDUCATION; PT ACKNOWLEDGED ALL INFORMATION, ALL QUESTIONS ANSWERED. PT AWARE RX SENT TO [facility]. PT MADE AWARE TO CALL 911 AND RETURN TO ER IF NECESSARY. AWAITING TRANSPORTATION
== END 2020-03-07 17:45 | disposition home or self-care (01) | DRG 377 ==
LOC: EDH 16:23 → EDHIP 20:57 → 4DH 02-27 13:03 → DAHIP 02-28 18:06
PROVIDERS: ADMIT Internal Medicine; ATTEND Internal Medicine
PROC: 30233N1 Transfusion of Nonautologous Red Blood Cells into Peripheral Vein, Percutaneous Approach (ICD-10-PCS; principal; 2020-02-25)
PROC: 0DJ08ZZ Inspection of Upper Intestinal Tract, Via Natural or Artificial Opening Endoscopic (ICD-10-PCS; 2020-02-28)
PROC: 0DJD8ZZ Inspection of Lower Intestinal Tract, Via Natural or Artificial Opening Endoscopic (ICD-10-PCS; 2020-03-01)
DX: K29.71 Gastritis, unspecified, with bleeding (principal); R57.8 Other shock; I50.33 Acute on chronic diastolic (congestive) heart failure; D62 Acute posthemorrhagic anemia; I48.20 Chronic atrial fibrillation, unspecified; E87.1 Hypo-osmolality and hyponatremia; I44.2 Atrioventricular block, complete; I42.0 Dilated cardiomyopathy; I13.0 Hypertensive heart and chronic kidney disease with heart failure and stage 1 through stage 4 chronic kidney disease, or unspecified chronic kidney disease; K57.31 Diverticulosis of large intestine without perforation or abscess with bleeding; I49.5 Sick sinus syndrome; E03.9 Hypothyroidism, unspecified; E78.5 Hyperlipidemia, unspecified; I08.0 Rheumatic disorders of both mitral and aortic valves; I27.20 Pulmonary hypertension, unspecified; N18.3 Chronic kidney disease, stage 3 (moderate); E11.22 Type 2 diabetes mellitus with diabetic chronic kidney disease; Z20.828 Contact with and (suspected) exposure to other viral communicable diseases; K64.1 Second degree hemorrhoids; D50.9 Iron deficiency anemia, unspecified; K31.89 Other diseases of stomach and duodenum; K29.70 Gastritis, unspecified, without bleeding; Z88.5 Allergy status to narcotic agent; Z95.3 Presence of xenogenic heart valve; Z95.0 Presence of cardiac pacemaker; Z79.01 Long term (current) use of anticoagulants; Z79.899 Other long term (current) drug therapy; Z82.5 Family history of asthma and other chronic lower respiratory diseases; Z82.3 Family history of stroke; Z83.3 Family history of diabetes mellitus; Z82.0 Family history of epilepsy and other diseases of the nervous system; Z82.49 Family history of ischemic heart disease and other diseases of the circulatory system
CPT/HCPCS: 36415; 43235; 45378; 71045; 74176; 80048; 80053; 80076; 82550; 82948; 83540; 83550; 83605; 83735; 83880; 84132; 84484; 85014; 85018; 85025; 85027; 85045; 85610; 85730; 86140; 86850; 86900; 86901; 86922; 87040; 87426; 93005; 93306; 93356; 99291; C9113; G0378; J0696; J0885; J1720; J1756; J1940; J2704; J3475; J3490; J7030; P9016; U0003

== ENCOUNTER → 2020-04-19 | Outpatient (CLI) | payer BC ==
[~2020-04-19] MED LIST changes: +DOCU240C25 PO; +FERR325T22 PO; -FURO20TA4 PO; +FURO40TA7 PO; -METF-444 PO; +PANT40TA54 PO; +ROSU5TAB12 PO
== END | disposition home or self-care (01) ==
LOC: SHCH 10:25
PROVIDERS: ATTEND Internal Medicine Cardiovascular Disease
DX: I34.0 Nonrheumatic mitral (valve) insufficiency (principal)
CPT/HCPCS: 36415; 87040; 93306; 93356

== ENCOUNTER 2020-05-08 06:00 | Day surgery (SDC) | payer BC ==
[2020-05-06 13:31] LABS: BASOPHILS % (AUTO) 0.9 % (0.0-5.0); EOSINOPHILS % (AUTO) 2.1 % (0.0-8.0); LYMPHOCYTES % (AUTO) 26.3 % (21.0-51.0); MEAN CORPUSCULAR HEMOGLOBIN 28.8 pg (27.0-33.0); MEAN CORPUSCULAR HGB CONC 31.2 g/dL (32.0-36.0); MEAN CORPUSCULAR VOLUME 92.2 fL (79-99); MONOCYTES % (AUTO) 8.1 % (3.0-13.0); NEUTROPHILS % (AUTO) 62.4 % (40.0-77.0); PLATELET COUNT (AUTO) 102 K/uL (130-400); RED BLOOD CELL COUNT(AUTO) 3.58 MIL/uL (4.00-5.50); RED CELL DISTRIBUTION WIDTH 15.6 % (11.0-15.5); WHITE BLOOD COUNT (AUTO) 4.3 K/uL (4.8-10.8)
[2020-05-06 13:32] LABS: APPEARANCE,URINE Clear (CLEAR); BILIRUBIN,URINE Negative (NEGATIVE); COLOR,URINE Yellow (YELLOW); GLUCOSE, URINE (UA) Negative (NEGATIVE); KETONES,URINE Negative (NEGATIVE); LEUKOCYTE ESTERASE ,URINE Trace (NEGATIVE); NITRATE,URINE Negative (NEGATIVE); OCCULT BLOOD,URINE Negative (NEGATIVE); PROTEIN,URINE Negative (NEGATIVE); UROBILINOGEN,URINE 0.2 mg/dL (0.2-1.0)
[2020-05-06 13:42] LABS: BACTERIA,URINE Rare /HPF (None Seen); RBC,URINE 0-1 /HPF (0-1); SQUAMOUS EPITHELIAL CELL,UR Rare /HPF (0-2); WBC,URINE 0-1 /HPF (0-1)
[2020-05-06 13:43] LABS: CREATININE 1.6 mg/dL (0.5-1.5); POTASSIUM 3.7 mmol/L (3.5-5.1)
[2020-05-06 13:45] LABS: INR 1.4 (0.85-1.15); PROTHROMBIN TIME 14.9 SEC (9.6-11.6)
[2020-05-07 13:22] VITALS: BP 115/47
--- NOTE | 2020-05-07 13:50 | NUR ---
LABS INFORMED DR. CAN OF ABNORMAL CBC/PT/PTT/BUN/CREA. NO ORDERS RECEIVED. PROCEED WITH PLANNED PROCEDURE Addendum: 05/07/20 at 1352 by TRISTAN TA RN RN ALSO NOTIFIED OF ABNORMAL CHEST XRAY. NO ORDERS
[~2020-05-08] VITALS: Ht 152.4 cm; Wt 63.5 kg
[2020-05-08] VITALS (11 sets, daily range): BP systolic 109–128; BP diastolic 49–61
[~2020-05-08 06:00] MED LIST changes: -DOCU240C25 PO
[2020-05-08] MEDS ORDERED: SODIUM CHLORIDE 0.9% 1000ML 1,000 ML IV ONE (06:15)
[2020-05-08] MEDS ORDERED: IOHEXOL-350 75 ML VIAL IV ONE (07:22)
[2020-05-08] MEDS ORDERED: BIVALIRUDIN 250 MG/VIAL IV ONE (07:22)
[2020-05-08] MEDS ORDERED: HEPARIN SODIUM 1000UNIT/ML 10ML VIAL ONE (07:22)
[2020-05-08] MEDS ORDERED: NITROGLYCERIN 2 MG/VIAL VIAL IV ONE (07:22)
[2020-05-08] MEDS ORDERED: LIDOCAINE HCL 2% 20ML ONE (07:23)
[2020-05-08] MEDS ORDERED: IOHEXOL 350 MG/ML 100ML INFUS..BTL IV ONE (07:23)
[2020-05-08] MEDS ORDERED: MIDAZOLAM HCL 1 MG/ML 2ML VIAL ONE (07:23)
--- NOTE | 2020-05-08 07:30 | NUR ---
PROCEDURE PT TAKEN TO TRANSFER TABLE OPERATOR VIA BED,NO DISTRESS NOTED
[2020-05-08] MEDS ORDERED: SODIUM CHLORIDE 0.9% 1000ML 1,000 ML IV SCH (09:30)
--- NOTE | 2020-05-08 09:55 | NUR ---
POST RECEIVED PT BACK FROM BLEACH PLANT OPERATOR. S/P RIGHT/LHC, PT AWAKE AND ALERT. SEE POST CATH ASSESSMENT. VS STABLE ON ARRIVAL. PT/SON INSTRUCTED ON PLAN OF CARE. CALL LIGHT WITHIN REACH
--- NOTE | 2020-05-08 11:00 | NUR ---
MD DR MARTINES IN TO SEE PATIENT FOR NEW CONSULT.
--- NOTE | 2020-05-08 14:37 | NUR ---
REPORT REPORT GIVEN TO KIMBERLEY POSEY RN TO RESUME CARE OF PATIENT, PT AWAKE AND ALERT IN NO DISTRESS,
--- NOTE | 2020-05-08 15:30 | NUR ---
discharge pt and son given d/c instructions. both voiced understanding. no s/s of bleeding or hematoma noted. pt taken out via w/c by aleida gonzales. pt in no distress
== END 2020-05-08 15:30 | disposition home or self-care (01) ==
LOC: DAH 06:00
PROVIDERS: ATTEND Internal Medicine Cardiovascular Disease
DX: I27.20 Pulmonary hypertension, unspecified (principal); I25.10 Atherosclerotic heart disease of native coronary artery without angina pectoris; I08.3 Combined rheumatic disorders of mitral, aortic and tricuspid valves; I48.20 Chronic atrial fibrillation, unspecified; I50.33 Acute on chronic diastolic (congestive) heart failure; E03.9 Hypothyroidism, unspecified; Z79.01 Long term (current) use of anticoagulants; Z95.2 Presence of prosthetic heart valve; Z95.0 Presence of cardiac pacemaker; Z98.890 Other specified postprocedural states; Z79.899 Other long term (current) drug therapy
CPT/HCPCS: 36415; 71045; 75710; 80048; 81001; 82948 ×2; 85025; 85610; 85730; 93005; 93461; A4215; A4216; A4221; A4222; A4223 ×3; A4606; A4663; C1769; C1894 ×2; J1644; J2250; J3490 ×2; J7030; Q9965; Q9967; 99156; 99157; J0583

== ENCOUNTER → 2020-06-12 | Outpatient (CLI) | payer BC ==
[2020-06-07 10:23] LABS: BASOPHILS % (AUTO) 0.5 % (0.0-5.0); HEMATOCRIT 29.5 % (36-48); MEAN CORPUSCULAR HEMOGLOBIN 28.7 pg (27.0-33.0); MEAN CORPUSCULAR HGB CONC 31.2 g/dL (32.0-36.0); MEAN CORPUSCULAR VOLUME 91.9 fL (79-99); MONOCYTES % (AUTO) 10.7 % (3.0-13.0); NEUTROPHILS % (AUTO) 68.3 % (40.0-77.0); PLATELET COUNT (AUTO) 110 K/uL (130-400); RED BLOOD CELL COUNT(AUTO) 3.21 MIL/uL (4.00-5.50); RED CELL DISTRIBUTION WIDTH 15.4 % (11.0-15.5); WHITE BLOOD COUNT (AUTO) 3.9 K/uL (4.8-10.8)
[2020-06-07 10:31] LABS: HEMOGLOBIN A1C 5.9 % (4.0-6.0)
[2020-06-07 10:40] LABS: INR 1.25 (0.85-1.15); PARTIAL THROMBOPLASTIN TIME 31.7 SEC (26.3-35.5); PROTHROMBIN TIME 13.4 SEC (9.6-11.6)
[2020-06-07 10:43] LABS: ALBUMIN 3.4 g/dL (3.5-5.0); BILIRUBIN,TOTAL 0.7 mg/dL (0.2-1.0); CREATININE 1.7 mg/dL (0.5-1.5); POTASSIUM 3.5 mmol/L (3.5-5.1)
[2020-06-07 10:51] LABS: APPEARANCE,URINE Clear (CLEAR); BILIRUBIN,URINE Negative (NEGATIVE); COLOR,URINE Yellow (YELLOW); GLUCOSE, URINE (UA) Negative (NEGATIVE); KETONES,URINE Negative (NEGATIVE); LEUKOCYTE ESTERASE ,URINE Trace (NEGATIVE); NITRATE,URINE Negative (NEGATIVE); OCCULT BLOOD,URINE Trace (NEGATIVE); PH,URINE 6.5 (5.0-8.0); PROTEIN,URINE POS 2+ mg/dL (NEGATIVE)
[2020-06-07 11:03] LABS: B-TYPE NATRIURETIC PEPTIDE 407 pg/mL (0-100)
[2020-06-07 11:17] LABS: BACTERIA,URINE Rare /HPF (None Seen); RBC,URINE 0-1 /HPF (0-1); WBC,URINE 0-1 /HPF (0-1)
[~2020-06-12] MED LIST changes: +CLINDAMYCIN 900 MG/D5% WATER 50 ML IV SCH
== END | disposition home or self-care (01) ==
LOC: DAH 10:00 → EDSTATUS 10:59
PROVIDERS: ATTEND Thoracic Surgery (Cardiothoracic Vascular Surgery)
DX: Z01.810 Encounter for preprocedural cardiovascular examination (principal); I34.0 Nonrheumatic mitral (valve) insufficiency; M47.815 Spondylosis without myelopathy or radiculopathy, thoracolumbar region; Z20.828 Contact with and (suspected) exposure to other viral communicable diseases; Z95.0 Presence of cardiac pacemaker
CPT/HCPCS: 36415; 71046; 80053; 81001; 83036; 83880; 85025; 85610; 85730; 86850; 86900; 86901; 93005; 93880; 94010; A6260; U0003